=== PATIENT | male | born 2000 | race Caucasian/White ===

== ENCOUNTER 2021-02-18 14:40 | Outpatient (REF) | payer BC, SELFPAY ==
[2021-02-18 15:14] LABS: MANUAL DIFF FLAG NO
[2021-02-18 15:27] LABS: Basophils Absolute Auto 0.1 X10*3/uL (0.0-0.2); Basophils Percent Auto 0.8 % (0-2); Eosinophils Absolute Auto 0.1 X10*3/uL (0.0-0.4); Eosinophils Percent Auto 1.5 % (0-4); Hematocrit 45.2 % (42-52); Hemoglobin 15.2 g/dl (14.0-18.0); Imm Gran Abs Auto 0.02 X10*3/uL (0.00-0.03); Imm Gran Pct Auto 0.3 % (0.0-0.4); Lymphocytes Absolute Auto 1.6 X10*3/uL (1.2-4.9); Lymphocytes Percent Auto 25.2 % (20-40); Mean Corpuscular HGB Conc 33.6 g/dl (31.0-36.0); Mean Corpuscular Hemoglobin 30.7 pg (27.0-33.0); Mean Corpuscular Volume 91.3 fL (80-98); Mean Platelet Volume 10.1 fL (9.4-12.4); Monocytes Absolute Auto 0.5 X10*3/uL (0.1-1.2); Neutrophils Percent Auto 64.2 % (45-73); Platelet Count 245 X10*3/uL (160-400); Red Blood Count 4.95 X10*6/uL (4.60-5.80); Red Cell Distribution Width 11.7 % (11.0-16.0); White Blood Count 6.2 X10*3/uL (4.8-10.8)
[2021-02-18 15:37] LABS: Anion Gap 12 (12-20); Blood Urea Nitrogen 8 mg/dL (9-16); Calcium 10.2 mg/dL (8.4-10.2); Carbon Dioxide 28 mmol/L (22-29); Chloride 106 mmol/L (96-108); Cholesterol 105 mg/dL; Estimated Glomerular Filt Rate > 60; Glucose Random 81 mg/dL (60-115); Potassium 4.6 mmol/L (3.3-5.1); Sodium 141 mmol/L (135-145)
== END 2021-02-18 14:41 | disposition home or self-care (01) ==
LOC: HO.LAB 14:40
PROVIDERS: PCP Internal Medicine; Visit Provider Internal Medicine
DX: F90.9 Attention-deficit hyperactivity disorder, unspecified type (principal); Z83.3 Family history of diabetes mellitus
CPT/HCPCS: 36415; 80048; 82465; 85025

== ENCOUNTER 2022-07-27 13:08 | Outpatient (REF) | payer BC, SELFPAY ==
[2022-07-27 14:31] LABS: Influenza A PCR NEGATIVE (Negative); Influenza B PCR NEGATIVE (Negative); Resp Syncy Virus RNA Qual PCR NEGATIVE (Negative); SARS COV2 PCR INHOUSE NEGATIVE (Negative)
== END 2022-07-27 13:09 | disposition home or self-care (01) ==
LOC: HO.10HDLNP 13:08
PROVIDERS: Visit Provider Internal Medicine
DX: Z20.822 Contact with and (suspected) exposure to COVID-19 (principal); R05.9 Cough, unspecified
CPT/HCPCS: 0241U

== ENCOUNTER 2023-05-11 11:00 | Outpatient (REF) | payer BC, SELFPAY ==
[2023-05-11 13:14] LABS: MANUAL DIFF FLAG NO
[2023-05-11 13:42] LABS: Basophils Percent Auto 0.6 % (0-2); Eosinophils Absolute Auto 0.2 X10*3/uL (0.0-0.4); Hematocrit 46.8 % (42.0-52.0); Hemoglobin 15.8 g/dl (14.0-18.0); Imm Gran Abs Auto 0.01 X10*3/uL (0.00-0.03); Imm Gran Pct Auto 0.1 % (0.0-0.4); Lymphocytes Absolute Auto 2.2 X10*3/uL (1.2-4.9); Lymphocytes Percent Auto 32.4 % (20-40); Mean Corpuscular HGB Conc 33.8 g/dl (31.0-36.0); Mean Corpuscular Hemoglobin 30.3 pg (27.0-33.0); Mean Corpuscular Volume 89.8 fL (80.0-98.0); Mean Platelet Volume 10.6 fL (9.4-12.4); Monocytes Absolute Auto 0.8 X10*3/uL (0.1-1.2); Monocytes Percent Auto 11.8 % (2-11); Neutrophils Absolute Auto 3.5 x10*3/uL (2.0-8.3); Neutrophils Percent Auto 52.1 % (45-73); Platelet Count 258 X10*3/uL (160-400); Red Blood Count 5.21 X10*6/uL (4.60-5.80); White Blood Count 6.7 X10*3/uL (4.8-10.8)
[2023-05-11 13:52] LABS: Anion Gap 10 (12-20); Blood Urea Nitrogen 13 mg/dL (9-16); Calcium 9.5 mg/dL (8.4-10.2); Carbon Dioxide 25 mmol/L (22-29); Chloride 108 mmol/L (96-108); Estimated Glomerular Filt Rate > 60; Glucose Random 99 mg/dL (60-115); Potassium 4.3 mmol/L (3.3-5.1); Sodium 139 mmol/L (135-145)
== END 2023-05-11 11:01 | disposition home or self-care (01) ==
LOC: HO.10HDL 11:00
PROVIDERS: Visit Provider Internal Medicine
DX: F90.9 Attention-deficit hyperactivity disorder, unspecified type (principal); Z20.2 Contact with and (suspected) exposure to infections with a predominantly sexual mode of transmission
CPT/HCPCS: 36415; 80048; 85025

== ENCOUNTER 2023-06-14 10:37 | Emergency (ER) | payer OTHER, BC, SELFPAY ==
--- NOTE | ~2023-06-14 | XR_ITS ---
EXAMINATION: XR KNEE, LEFT CLINICAL INFORMATION: Knee dislocation COMPARISON: Previous x-ray December 2017 TECHNIQUE: Four views of the left knee. FINDINGS: No fracture or joint effusion. Alignment is anatomic. Joint spaces are maintained. No abnormal soft tissue calcification. XR/XR knee LT 3V IMPRESSION: Normal left knee.
[2023-06-14 10:45] VITALS: BP 140/87; PULSE 75; RESP 18; TEMP 36.9; O2SAT 97; BMI 25.1
--- NOTE | 2023-06-14 10:59 | ED_ITS ---
HPI - Extremity Problem General Chief complaint: Extremity Problem Stated complaint: knee dislocation? 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 Reports stepped down & had weight on left leg awkwardly and twisted felt popping/weird sensation. Denies direct injury/trauma, numbness, tingling, weakness, fever/chills MD Complaint: extremity pain Related Data Allergies Allergy/AdvReac Type Severity Reaction Status Date / Time No Known Allergies Allergy Verified 06/14/23 10:44 Review of Systems Review of Systems: Constitutional: No Fever, No Chills ENT/Mouth: No Ear Pain, No Nasal Congestion, No sore throat, No Rhinorrhea, No Swallowing Difficulty Cardiovascular: No Chest Pain, No SOB Respiratory: No Cough, No Sputum, No Wheezing Gastrointestinal: No Nausea, No Vomiting, No Diarrhea, No Constipation, No Abdominal pain Musculoskeletal: + joint pain, No Myalgias, No Joint Swelling Skin: No Skin Lesions, No rash Neuro: No Weakness, No Numbness, No Paresthesias, No head trauma, No LOC Yes all other systems are reviewed and are negative Constitutional: Constitutional: Reports as per HPI [facility] Past Medical History Attestation statement: The following information was validated with the patient. Source: old records reviewed Physical Exam Vital Signs: Vital Signs: Last Vital Signs Temp 98.5 F 06/14/23 10:45 Pulse 75 06/14/23 10:45 Resp 18 06/14/23 10:45 BP 140/87 H 06/14/23 10:45 Pulse Ox 97 06/14/23 10:45 BMI result Body Mass Index 25.1 Const: General: cooperative, healthy appearing and no acute distress Orientation/consciousness: patient oriented x3 Limitations: no limitations HEENT: Head: Yes normal to inspection and Yes atraumatic Ears: hearing grossly normal bilaterally General nose exam: Normal external nose present Face and sinus: Yes normal facial exam Eyes: General: appearance normal, both eyes and all related structures EOM: EOMs intact bilaterally Neck: Neck: Yes normal visual inspection and Yes no meningeal signs Resp: Effort & Inspection: normal respiratory effort and no respiratory distress Cardio: Rate: regular rate Peripheral pulses: Peripheral pulses 2+ throughout Skin: Rashes: no rashes Wounds: no wounds Neuro: General: patient oriented x3, tone normal and no meningeal signs Cranial nerves: Yes CN's II-XII intact bilaterally Gait exam (Neuro): Normal gait present Extrem: Other: L knee with mild swelling. No erythema/warmth. No crepitus or deformity. +Mild ttp, FROM intact with discomfort. Neurovascular intact distally. Course Course Course Narrative: XR knee LT 3V IMPRESSION: Normal left knee. > patient placed in knee immobilizer and supplied with crutches. Suspect dislocation/relocation. Recommended close orthopedic follow-up. Results discussed with patient including worrisome signs and symptoms and strict return precautions, and when to return to the emergency department. They verbalized understanding and feel safe for discharge at this time. 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 On exam vital signs stable, NAD, nontoxic appearing, physical exam as noted above with swollen left knee with mild tenderness in pain with ROM. No deformity. Concern for possible dislocation/relocation versus sprain. Unlikely fracture, septic joint/arthritis Plan: X-ray Please refer to course for remaining clinical decision making, interpretation of labs/imaging results, and discussions with consultants and/or family members. Differential Diagnosis Differential Diagnoses: The differential diagnosis associated with the presentation includes As above Independent Interpretation I performed an independent interpretation of an: Plain X-Ray Radiology Impression Discussion of test interpretation with radiology: I have reviewed the radiologist's reading. External Record Review External record reviewed: Inpatient record, Office record, Outpatient record, Prior outpatient labs, Prior outpatient radiology, Primary care record and Outside ED record Tests considered The following testing was considered but not selected: As above Prescription Management I considered prescription management with: Pain Medication Procedures Orthopedic Splinting/Casting Injury #1: Side: left Lower Extremity Injury Location: knee Lower Extremity Immobilizer: knee immobilizer Other Orthopedic Equipment: crutches Discharge Plan Discharge Clinical Impression: Injury of knee Patient Disposition: Home, Self-Care Instructions: Knee Dislocation (ED), Knee Immobilizer (ED) Additional Instructions: Your x-ray is normal, it is not currently dislocated However we suspect you dislocated and relocated on her own Please wear knee immobilizer and use crutches Ice and elevate Take Tylenol and Motrin If you are ED dislocate return to the ED Please follow-up with home staging specialist If symptoms persist or worsen/pain becomes unbearable return to the ED Referrals: [facility] [place] Orthopedic Surgeons [Provider Group] Stand Alone Forms: Work/School Release
== END 2023-06-14 15:27 | disposition home or self-care (01) ==
PROVIDERS: Emergency Provider Emergency Medicine; PCP Internal Medicine
DX: S89.92XA Unspecified injury of left lower leg, initial encounter (principal); M25.562 Pain in left knee; W11.XXXA Fall on and from ladder, initial encounter; Y93.9 Activity, unspecified; Y99.0 Civilian activity done for income or pay; Y99.9 Unspecified external cause status
CPT/HCPCS: 29505; 73562; 99283; 99284

== ENCOUNTER 2023-06-18 08:05 | Outpatient (REF) | payer OTHER, BC, SELFPAY ==
--- NOTE | ~2023-06-18 | XR_ITS ---
EXAMINATION: XR KNEE, LEFT CLINICAL INFORMATION: Pain. COMPARISON: Prior radiographs, most recently 06/14/2023. TECHNIQUE: An axial view of the left knee is submitted. FINDINGS: Bones and soft tissues are normal. No fracture or joint effusion. Alignment is anatomic. Joint spaces are well maintained. No abnormal soft tissue calcification. XR/XR knee LT 1V IMPRESSION: Normal knee.
== END 2023-06-18 08:06 | disposition home or self-care (01) ==
LOC: HO.HOSX 08:05
PROVIDERS: Visit Provider Physician Assistant
DX: M23.92 Unspecified internal derangement of left knee (principal)
CPT/HCPCS: 73560; 99202

== ENCOUNTER 2023-06-18 09:36 | Outpatient (AMB) | payer OTHER, BC, SELFPAY ==
--- NOTE | 2023-06-18 09:45 | A.OFFVIS_ITS ---
Intake Intake Visit Reasons: ED f/u- Lt Knee dislocation Intake Note: Mk garcia 23 year old male presents today for an ER follow up s/p work injury of left knee, DOI 06/14/23 . Patient reports while stepping down from a ladder he placed weight on left leg awkwardly and twisted causing a pop. He presented to [facility] [place] ED where xrays were taken and placed in a knee immobilizier. Pt states the pain comes in waves but it is most painful when his leg is straight. Pt states he does get numbness and tingling from his knee down to his toes. Allergies No Known Allergies Allergy (Verified 06/18/23 09:45) HPI ED f/u- Lt Knee dislocation HPI Details 23-year-old male who presents to the off [facility] today for an injury he anne stained to his left knee while at work on 06/14/23. He states he was stepping down a ladder at work when he placed weight on his left leg awkwardly and twisted causing a pop. He immediately experienced swelling and difficulty with weight bearing. He was seen at ED where x-rays were performed and he was placed in a knee immobilizer. He states he experiences pain in waves but is aggravated with extending his leg. He also c/o numbness and tingling in his knee which radiates down to his toe. He has a history of knee injury while playing soccer in 2016. 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 [facility] Social History (Updated 06/18/23 @ 09:51 by Trini Moreno MA) Household Members: Family Housing: House Alcohol intake: never Patient Tobacco Use Status: Never used Tobacco Use of substances other than those prescribed or required for medical reasons: No Current occupation: [employer] Review of Systems Const All systems reviewed & are unremarkable except as noted in HPI and below Physical Exam Const General: cooperative and no acute distress Orientation/consciousness: patient oriented x3 Resp Effort & Inspection: normal respiratory effort and able to speak in complete sentences Cardio Peripheral pulses: Peripheral pulses 2+ throughout Neuro General: patient oriented x3 Extrem Other: Left knee: Skin intact, no erythema or joint effusion. Tenderness along the medial joint line as well as medial retropatellar tenderness. Full ROM with crepitus. Negative Agustín?s. Slight ligamentous laxity on the anterior drawer when compared to the contralateral side. NVI. Results Reviewed Results Reviewed: xrays of the left knee obtained in the office today show well preserved joint space, no fracture or dislocations Assessment & Plan Assessment & Plan (1) Internal derangement of left knee: Code(s): M23.92 - Unspecified internal derangement of left knee Plan An MRI of the left knee has been ordered to further evaluate the integrity of ligamentous structures. He will remain out of work untill his follow-up appointment. He should avoid his swim duty as well. He was fit for a playmaker brace in the office today to help with stability. Orders: Orders MR knee LT wo con 06/18/23 M23.92 - Unspecified internal derangement of left knee XR knee LT 1V 06/18/23 M25.562 - Pain in left knee Patient Instructions: Scribed for Renate Isidro PA-C, by Eliezer Short senior medical billing specialist, on 06/18/2023 at 9:45 AM EST. I, Renate Isidro PA-C, have personally reviewed and agree with the information entered by the scribe. Coding Level of Care Code New Pt Level 3 (84943) Diagnoses Internal derangement of left knee M23.92
== END 2023-06-18 10:13 | disposition home or self-care (01) ==
PROVIDERS: PCP Internal Medicine; Visit Provider Physician Assistant
DX: M23.92 Unspecified internal derangement of left knee (principal); X50.1XXA Overexertion from prolonged static or awkward postures, initial encounter; Y99.0 Civilian activity done for income or pay; Z04.2 Encounter for examination and observation following work accident
CPT/HCPCS: 99203

== ENCOUNTER 2023-07-10 15:15 | Outpatient (REF) | payer OTHER, BC, SELFPAY ==
--- NOTE | ~2023-07-10 | MR_ITS ---
EXAMINATION: MR KNEE WITHOUT CONTRAST, LEFT CLINICAL INFORMATION: Internal derangement. COMPARISON: None available. TECHNIQUE: MRI of the knee without contrast was performed using routine sequences on a high-field scanner. FINDINGS: MENISCI: Medial Meniscus: Peripheral tibial surface tear in the body. Lateral Meniscus: Complex tear. There appears be tissue displaced into the intercondylar notch and adjacent to the anterior horn, suspicious for a bucket-handle component to the tear. There is irregular tearing of the residual posterior horn. LIGAMENTS: Cruciate: The ACL is not visualized. There appear to be lax fibers in the intercondylar region. Findings compatible with full-thickness tearing. Intact PCL. Collateral: Intact EXTENSOR MECHANISM: Intact ARTICULAR CARTILAGE/BONE: Patellofemoral Compartment: No significant cartilage loss. Normal patellofemoral alignment. Medial Compartment: Prominent bone contusion in the posterior medial tibial plateau. Overlying cartilage heterogeneity. Bone contusion in the medial margin of the femoral condyle. Lateral Compartment: Prominent bone contusion in the posterior lateral tibial plateau. JOINT FLUID AND BURSAE: Small effusion. No significant Monroy's cyst. MR/MR knee LT wo con IMPRESSION: 1. Tear of the medial meniscal body. 2. Complex tear of the lateral meniscus, with findings suspicious for a bucket-handle component to the tear. Irregular tearing of the residual posterior horn. 3. Anterior cruciate ligament full-thickness tearing. 4. Prominent bone contusion in the posterior aspect of the medial and lateral tibial plateau. Bone contusion in the medial margin of the medial femoral condyle. 5. Small effusion.
== END 2023-07-10 15:16 | disposition home or self-care (01) ==
LOC: HO.MRI 15:15
PROVIDERS: PCP Internal Medicine; Visit Provider Physician Assistant
DX: M23.92 Unspecified internal derangement of left knee (principal)
CPT/HCPCS: 73721

== ENCOUNTER 2023-07-15 08:27 | Outpatient (REF) | payer BC, SELFPAY ==
[2023-07-15 09:34] LABS: Free T4 (Free Thyroxine) 0.97 ng/dL (0.71-1.85); Thyroid Stimulating Hormone 3.57 uIU/mL (0.32-4.0)
== END 2023-07-15 08:28 | disposition home or self-care (01) ==
LOC: HO.LAB 08:27
PROVIDERS: PCP Internal Medicine; Visit Provider Internal Medicine
DX: R63.5 Abnormal weight gain (principal); S83.512A Sprain of anterior cruciate ligament of left knee, initial encounter
CPT/HCPCS: 36415; 84439; 84443; 99212

== ENCOUNTER 2023-07-15 08:43 | Outpatient (AMB) | payer OTHER, BC, SELFPAY ==
--- NOTE | 2023-07-15 08:56 | A.OFFVIS_ITS ---
Intake Vital Signs 07/15/23 08:57 Height 5 ft 9 in Weight 170 lb BMI 25.1 Intake Visit Reasons: OV-Lt Knee dislocation-MRI REVIEW Intake Note: Cedrick is a 23 year old male who presents today for an MRI review of his left knee. s/p work injury of left knee, DOI 06/14/23 . Patient reports while stepping down from a ladder he placed weight on left leg awkwardly and twisted causing a pop . He reports that he is feeling about the same with no changes Allergies No Known Allergies Allergy (Verified 06/18/23 09:45) HPI OV-Lt Knee dislocation-MRI REVIEW HPI Details Mk is a 23 year old man who presents for an MRI review of his left knee injury. This is a workers comp injury, he twisted his knee while descending a ladder on 06/14/23 and felt a painful popping sensation in his knee. He reports pain & swelling with daily activity, worse when trying to extend his leg. He says his symptoms are unchanged from his previous visit with ODILIA Isidro on 06/18/23. He denies any prior treatment and has been wearing a Playmaker knee brace. His work involves manual labor. 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 Review of Systems Const All systems reviewed & are unremarkable except as noted in HPI and below Physical Exam Vital Signs: BMI result Body Mass Index 25.1 Const General: no acute distress, alert and awake Orientation/consciousness: patient oriented x3 HEENT Head: Yes normocephalic and Yes atraumatic Eyes EOM: EOMs intact bilaterally Resp Effort & Inspection: normal respiratory effort and able to speak in complete sentences Cardio Jugular venous distension: no JVD Skin General skin exam: turgor normal Rashes: no rashes Neuro General: patient oriented x3 Extrem Other: Full ROM 2+ Ant dwarwer No pivot shift ( + apprehension) Psych Appearance: grossly normal Affect: normal affect Attitude: cooperative Results Reviewed Results Reviewed: I personally reviewed relevant MR images 1. Tear of the medial meniscal body. 2. Complex tear of the lateral meniscus, with findings suspicious for a bucket-handle component to the tear. Irregular tearing of the residual posterior horn. 3. Anterior cruciate ligament full-thickness tearing. 4. Prominent bone contusion in the posterior aspect of the medial and lateral tibial plateau. Bone contusion in the medial margin of the medial femoral condyle. 5. Small effusion. Assessment & Plan Assessment & Plan (1) ACL tear: Code(s): S83.519A - Sprain of anterior cruciate ligament of unspecified knee, initial encounter Plan: Left ACL tear with concomitant lateral meniscus injury. I had a long discussion with him regarding treatment options. He is 23 healthy and active and I recommend ACL reconstruction with allograft. I explained the procedure and the details including the surgical and nonsurgical options.I discussed the risks benefits and alternatives including but not limited to the risk of pain, infection, stiffness, need for further surgery as well as potential medical complications. He will be out of work for at least 6 weeks but more likely 12 and return to unrestricted work could take up to 6 months. Plan Scribed for Kris Farah MD by Billy Watkins, pesticide use medical coordinator, on 07/15/23 at 9:15 AM, EST. Coding Level of Care Code Est Pt Level 4 (45094) Diagnoses ACL tear S83.519A
[2023-07-15 08:57] VITALS: BMI 25.1
== END 2023-07-15 09:59 | disposition home or self-care (01) ==
PROVIDERS: PCP Internal Medicine; Visit Provider Orthopaedic Surgery
DX: S83.519A Sprain of anterior cruciate ligament of unspecified knee, initial encounter (principal); Y99.0 Civilian activity done for income or pay; Z04.2 Encounter for examination and observation following work accident
CPT/HCPCS: 99214

== ENCOUNTER 2023-08-19 09:25 | Outpatient (AMB) | payer OTHER, BC, SELFPAY ==
[2023-08-19 09:27] VITALS: BMI 28.1
--- NOTE | 2023-08-19 09:27 | A.OFFVIS_ITS ---
Intake Vital Signs 08/19/23 09:27 Height 5 ft 9 in Weight 190 lb BMI 28.1 Intake Visit Reasons: Pre-Lt ACL 08/25 NE Allergies No Known Allergies Allergy (Verified 08/19/23 09:28) HPI Pre-Lt ACL 08/25 NE HPI Details 23-year-old male who presents in the off ice today for his preoperative history and physical exam prior to a left ACL repair to be performed on 08/25/[address] Kris Farah. Patient is accompanied in the office today by his grandmother. Patient has no known allergy history. Patient is not currently taking any medication. Patient has s significant medical history: -When he was 5 years old, not stated wha t surgery, did not have any issues with anesthesia. Patient has no known surgical history. Patient has a social history, as follows: - Currently works at [employer] [facility] Social History (Updated 06/18/23 @ 09:51 by Trini Moreno MA) Household Members: Family Housing: House Alcohol intake: never Patient Tobacco Use Status: Never used Tobacco Current occupation: [employer] Review of Systems Const All systems reviewed & are unremarkable except as noted in HPI and below Physical Exam Vital Signs: BMI result Body Mass Index 28.1 Const General: no acute distress, alert and awake Orientation/consciousness: patient oriented x3 HEENT Head: Yes normocephalic and Yes atraumatic Eyes EOM: EOMs intact bilaterally Resp Effort & Inspection: normal respiratory effort and able to speak in complete sentences Cardio Jugular venous distension: no JVD Skin General skin exam: turgor normal Rashes: no rashes Neuro General: patient oriented x3 Extrem Other: Left knee: Skin is clean, dry, and intact Full ROM 2+ Ant dwarwer No pivot shift ( + apprehension) Psych Appearance: grossly normal Affect: normal affect Attitude: cooperative Assessment & Plan Assessment & Plan (1) ACL tear: Code(s): S83.519A - Sprain of anterior cruciate ligament of unspecified knee, initial encounter Qualifiers: Encounter type: subsequent encounter Laterality: left Qualified Code(s): S83.512D - Sprain of anterior cruciate ligament of left knee, subsequent encounter Plan Mr. De La Rosa is a 23-year-old male who presents in the office today for his preoperative history and physical exam prior to a left ACL repair to be perfor med on 08/25/[address] Kris Farah. Patient is accompanied in the office today by his grandmother. Patient is accompanied in the office today by his grandmother. Patient has no known allergy history. Patient is not currently taking any medication. Patient has s significant medical history: -When he was 5 years old, not stated what surgery, did not have any issues with anesthesia. Patient has no known surgical history. Patient has a social history, as follows: - Currently works at [employer] I discussed in detail the procedure and what to expect pre and post operatively. We discussed the risks, benefits and alternatives to the surgery as well as the rehabilitation course. The risks; which include, but are not limited to infection, bleeding, nerve injury, ongoing pain, swelling, and stiffness, perioperative risk of injury to bones and soft tissues, and blood clots. I have answered all questions and with their understanding they have consented to move forward with a left ACL repair to be performed on 08/25/[address] Kris Farah. Follow up will be at the post operative appointment on 08/31/2023 or sooner if needed. Post operative medications was sent to the pharmacy, Oxycodone-acetaminophen 5- 325 (Percocet) PO Q4-6H PRN, quantity 42 tabs for 7 days and Morphine ER (MS Contin) 15 mg PO Q12H PRN, quantity 6 tabs for 3 days while in the office today. The patient was instructed that he should obtain the prescription prior to surgery but should not consume until after the procedure; as these should only be taken for post operative pain management. Should the patient take these medications prior to surgery a refill will not be sent to the pharmacy until their scheduled refill date. Patient was fitted for the brace while in the office today. Medications: New oxycodone-acetaminophen 5-325 mg Partial Fill upon patient request. 1 tab PO Q4-6H PRN 42 tabs 0RF pain 7 days morphine ER (MS Contin) Partial Fill upon patient request. 15 mg PO Q12H 6 tabs 0RF pain severe 3 days Patient Instructions: Scribed for Radha Tam PA-C by Mylene Henriquez medical science liaison, on 08/19/2023 at 9:31 am, EST. Coding Level of Care Code Global (84914) Diagnoses Rupture of anterior cruciate ligament of left knee, subsequent encounter S83.512D Encounter type: subsequent encounter Laterality: left
== END 2023-08-19 09:52 | disposition home or self-care (01) ==
PROVIDERS: PCP Internal Medicine; Visit Provider Physician Assistant
DX: S83.512A Sprain of anterior cruciate ligament of left knee, initial encounter (principal)
CPT/HCPCS: 99024

== ENCOUNTER → 2023-08-19 09:25 | Outpatient (BNVA) | payer OTHER, BC, SELFPAY | PROVIDERS: PCP Internal Medicine; Visit Provider Physician Assistant | DX: S83.512D Sprain of anterior cruciate ligament of left knee, subsequent encounter (principal) | CPT/HCPCS: 99212 ==

== ENCOUNTER 2023-09-01 08:33 | Day surgery (SDC) | payer OTHER, SELFPAY ==
[2023-08-23 11:24] VITALS: BMI 28.1
--- NOTE | 2023-08-23 11:46 | P.CONAN_ITS ---
Documented by User: Sera Garcia NP 09/10/23 13:35 HPI - Anesthesia Eval Consult details Narrative: 23yo M for Left ACL Allograft PMFSH Active Problems Active Problems: All Active Problems (Updated 08/23/23 @ 11:21 by Xenia Banuelos RN) Acute meniscal tear of knee (Acute) ACL tear (Acute) Internal derangement of left knee (Acute) Past Medical History Medical History (Updated 09/07/23 @ 08:29 by Mylene Henriquez) Acute meniscal tear of knee Surgical History Surgical History Surgical history unknown Social History Social History Household Members: Family Housing: House Alcohol intake: never Patient Tobacco Use Status: Never used Tobacco Current occupation: [employer] Allergies Allergy/AdvReac Type Severity Reaction Status Date / Time No Known Allergies Allergy Verified 09/07/23 08:13 Exam Height,Weight and Vital Signs: Height 5 ft 9 in Weight 86.183 kg Pertinent Lab Results Pertinent Lab Results: Laboratory Tests 05/11/23 05/11/23 05/11/23 11:10 11:10 11:55 WBC 6.7 Hgb 15.8 Hct 46.8 Plt Count 258 Sodium 139 Potassium 4.3 Chloride 108 Carbon Dioxide 25 BUN 13 Creatinine 0.82 Assessment and Plan Assessment Anesthesia Assessment: Chart Reviewed Documented by User: Asha Lindsay MD 09/13/23 08:26 PMFSH Past Medical History Medical History (Updated 09/07/23 @ 08:29 by Mylene Henriquez) Acute meniscal tear of knee Family History Family history of problems with anesthesia: No Surgical History Surgical History Surgical history unknown History of Problems with Anesthesia: No Social History Social History Household Members: Family Housing: House Alcohol intake: never Patient Tobacco Use Status: Never used Tobacco Current occupation: central maintanence Meds Allergies Allergy/AdvReac Type Severity Reaction Status Date / Time No Known Allergies Allergy Verified 09/07/23 08:13 Assessment and Plan Assessment Anesthesia Assessment: Anesthesia Plan Discussed Final Anesthetic Review Family History of Problems with Anesthesia: No History of Problems with Anesthesia: No NPO: Yes ASA Class: II Final Preanesthetic Review: No Changes in Pt Med Stat, Meds/Allgs Chart Reviewed, Consent Obtained/Reviewed and Anes Risks/Benef Reviewed Patient Risk: Low Procedure Risk: Low Anesthetic Plan Anesthetic Plan: GA Disposition: Standard PACU
[2023-09-01] VITALS (10 sets, daily range): BP systolic 85–143; BP diastolic 43–83; PULSE 64–90; RESP 16; TEMP 35.9–36.4; O2SAT 97–99; BMI 29.4
[2023-09-01] MEDS: Lactated Ringers 1,000 ML 100 ML IVCONT (09:08)
--- NOTE | 2023-09-01 11:20 | MHC.SHP ---
Pre-Procedural Eval Section A Date of Service: 09/01/23 The patient is an INPATIENT: No Changes since office visit: No Cold of Flu in the past 2 weeks, No New Medical Problems, No Changes in Medication and No Patient answered all questions The History & Physical has been completed within 30 days and I have reviewed it.: Yes Section B Chief Complaint: Sprain of anterior cruciate ligament of unspecifie Allergies: Allergies Allergy/AdvReac Type Severity Reaction Status Date / Time No Known Allergies Allergy Verified 09/01/23 08:45 Plan I have reviewed the history and physical and performed a pertinent physical examination on my patient. No changes have occurred unless specified. Time Spent With Patient Time: Total time managing care of this patient today ____ minutes.
--- NOTE | 2023-09-01 13:22 | PM.OP ---
Brief Operative Note Date of Service: 09/01/23 Pre-op diagnosis: left ACL Tear and lateral meniscus tear Post-op diagnosis: same Procedure: Left ACL recon with allograft and lateral meniscus repair Implants: [employer]ora [employer]hew fast fix meniscal cinches x 6 Surgeon: Kris Farah MD Anesthesia: GETA and regional Was an Clinical Laboratory Science Professor used for this Procedure?: Yes Clinical Laboratory Science Professor: Radha Tam Estimated blood loss (mL): 15 Tourniquet time (min): 70 IV fluids (mL): 1,000 Pathology: none sent Condition: stable Disposition: PACU
--- NOTE | 2023-09-02 12:04 | P.OP_ITS ---
Operative Note Operative Note Date of Service: 09/01/23 Narrative: Date of Service: 09/01/23 Pre-op diagnosis: left ACL Tear and lateral meniscus tear Post-op diagnosis: same Procedure: Left ACL recon with allograft and lateral meniscus repair Implants: Lora [employer] Nephew fast fix meniscal cinches x 6 Surgeon: Krsi Farah MD Anesthesia: GETA and regional Was an Associate Agent Insurance Sales used for this Procedure?: Yes Associate Agent Insurance Sales: Radha Tam Estimated blood loss (mL): 15 Tourniquet time (min): 70 IV fluids (mL): 1,000 Pathology: none sent Condition: stable Disposition: PACU Procedure in detail: Patient was brought to the operating room placed supine on the arthroscopic table and prepped and draped in standard sterile fashion. A time-out was called to identify proper site proper procedure proper surgeon and IV antibiotics per weight were administered. Under anesthesia he had a + pivot shift. I began by exsanguinating the limb and insufflating tourniquet to 300 mm Hg. Then made a standard anterolateral stab incision. The knee was insufflated with water and 30 degree arthroscope was placed. There was grade 1 fibrillations of the patella but overall suprapatellar pouch and the gutters were clean. I descended into the medial compartment where I made my far medial portal under direct visualization. There was an unstable bucket handle lateral meniscus tear. There were multiple flaps and the root was intact The cartialge srufaces were prisinte. I used six Fast Pass meniscal cinches (Lora and Nephew) to repair the tear through the AM portal. I was satisfied with the extent of repair. I then examined the notch where there was a + empty wall sign and an intact PCL. I de brided the stump and acl footprint and performed a limited notchplasty. I then, through a far AM portal and a 7mm behind the back guide, drilled a k-wire through the LFC with the knee in hyper-flexion. I measured the tunnel as a 36 and then after sizing the allograft on the back table drilled a 28 mm tunnel with a 10 mm reamer. The final 8 mm was drilled with a 4.5 reamer. I then pulled a suture through the femoral tunnel and turned my attention to the tibia. I did examine the femoral tunnel and was satisfied with the posterior wall and its location low and medial at the anatomic footprint. I placed my tibial drill guide in 55 deg and, through a anteromedial inc just lateral to the tibial tubercle placed a k-wire into the notch exiting just medial to the anterior horn insertion of the lateral meniscus. I then over-reamed with a 10mm reamer. I cleaned the tunnels up with a shaver. On the back table I whip-stitched the allograft to fit through a 10 aperture and attached the femoral button to the looped end. I placed the graft on 15lbs of tension for 10 minutes. I then passed the allograft through the tibial tunnel and femoral tunnel and flipped the button. I cycled the knee about 10-15 cycles and then placed a tibial interference screw with the knee in hyper-extension while holding the graft taught. Once I was satisfied that the interference screw was buried I examined the ACL and the lateral meniscus repair. The repair was stable and the ACL was not impinging and there was a negative pivot shift. I then removed all instrumentation and closed the incisions with nylon. Patient was then placed in sterile dressings and a hinged knee brace. She was then extubated brought recovery room stable condition. There were no known complications.
== END 2023-09-01 15:22 | disposition home or self-care (01) ==
LOC: HO.SSS 08:35
PROVIDERS: PCP Internal Medicine; Visit Provider Orthopaedic Surgery
PROC: (CPT 27428; principal; 2023-09-01 10:50)
DX: S83.512A Sprain of anterior cruciate ligament of left knee, initial encounter (principal); S83.252A Bucket-handle tear of lateral meniscus, current injury, left knee, initial encounter; X58.XXXA Exposure to other specified factors, initial encounter; Y93.9 Activity, unspecified; Y92.9 Unspecified place or not applicable; Y99.8 Other external cause status
CPT/HCPCS: 29882; 29888; C1713; C1769; J0131; J0171; J0665; J0690; J1100; J2250; J2405; J2704

== ENCOUNTER → 2023-09-01 08:33 | Outpatient (BNV) | payer OTHER, SELFPAY | PROVIDERS: PCP Internal Medicine; Visit Provider Orthopaedic Surgery | DX: S83.512A Sprain of anterior cruciate ligament of left knee, initial encounter (principal); S83.252A Bucket-handle tear of lateral meniscus, current injury, left knee, initial encounter | CPT/HCPCS: 29882; 29888 ==

== ENCOUNTER 2023-09-07 08:05 | Outpatient (AMB) | payer OTHER, SELFPAY ==
--- NOTE | 2023-09-07 08:12 | MHC.OFFVIS ---
Intake Vital Signs 09/07/23 08:17 Height 5 ft 9 in Weight 195 lb BMI 28.8 Intake Visit Reasons: PO LT ACL w/ allo 09/01/23 NE Intake Note: Mk is a 23 year old male who presents today for a post op appointment s/p left ACL w/ allo 09/01/22 NE. Patient reports he notice that his swelling has gone down, however he is still having pain. Allergies No Known Allergies Allergy (Verified 09/07/23 08:13) HPI PO LT ACL w/ allo 09/01/23 NE HPI Details 23-year-old male who presents in the office today 6 days status post left ACL reconstruction with allograft and lateral meniscus repair, which was performed on 09/01/[address] Farah. The patient reports he has noticed his edema has resolved, but states he is still having pain. 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 Sutures were intact. No surrounding erythema or drainage. No signs of infection. Able to dorsiflex and plantarflex. NVI. Assessment & Plan Assessment & Plan (1) ACL tear: Comment: Left ACL reconstruction with allograft and lateral meniscus repair 09/01/2023 Dr. Kris Farah Code(s): S83.519A - Sprain of anterior cruciate ligament of unspecified knee, initial encounter Qualifiers: Encounter type: subsequent encounter Laterality: left Qualified Code(s): S83.512D - Sprain of anterior cruciate ligament of left knee, subsequent encounter Plan Mr. De La Rosa is a 23-year-old male who presents in the office today 6 days status post left ACL reconstruction with allograft and lateral meniscus repair, which was performed on 09/01/[address] Farah. The patient reports he has noticed his edema has resolved, but states he is still having pain. Sutures were removed and steri-stripes were applied. The patient is scheduled to begin physical therapy on 09/09/2023. We discussed that he will be out of work for an estimated 6 months which could be shorted or extended depending on the progression of the patient. Follow up will be in [address] Farah, or sooner if needed. X-rays of the left knee which were obtained while in the office today and were reviewed by me, Radha Tam PA-C, revealed: Endo button demonstrates appropriate positioning. Orders: Orders XR knee LT 1V Today M25.569 - Pain in unspecified knee Patient Instructions: Scribed for Radha Tam PA-C by Mylene Henriquez medical office assistant instructor, on 09/07/2023 at 8:12 am, EST. Coding Level of Care Code Global (42455) Diagnoses Rupture of anterior cruciate ligament of left knee, subsequent encounter S83.512D Encounter type: subsequent encounter Laterality: left
[2023-09-07 08:17] VITALS: BMI 28.8
== END 2023-09-07 08:53 | disposition home or self-care (01) ==
PROVIDERS: PCP Internal Medicine; Visit Provider Physician Assistant
DX: S83.512D Sprain of anterior cruciate ligament of left knee, subsequent encounter (principal)
CPT/HCPCS: 99024

== ENCOUNTER 2023-09-07 12:01 | Outpatient (REF) | payer OTHER, SELFPAY ==
--- NOTE | ~2023-09-07 | XR_ITS ---
EXAMINATION: XR KNEE, LEFT CLINICAL INFORMATION: Pain. COMPARISON: Prior radiographs, most recently 06/23/2023. TECHNIQUE: An AP view of the left knee is submitted. FINDINGS: Bony alignment and mineralization are normal. The lateral and medial joint space compartments are symmetric and well-maintained. There has been a prior ACL repair. There is a sclerotic, benign bone island seen in the medial aspect of the proximal tibial metaphysis. No focal soft tissue swelling, gas or foreign body is seen. XR/XR knee LT 1V IMPRESSION: There are postoperative changes consistent with a prior ACL repair. The examination is otherwise unremarkable.
== END 2023-09-07 12:02 | disposition home or self-care (01) ==
LOC: HO.HOSX 12:01
PROVIDERS: Visit Provider Physician Assistant
DX: S83.512D Sprain of anterior cruciate ligament of left knee, subsequent encounter (principal)
CPT/HCPCS: 73560; 99212

== ENCOUNTER 2023-10-07 08:51 | Outpatient (AMB) | payer OTHER, SELFPAY ==
[2023-10-07 08:55] VITALS: BMI 28.8
--- NOTE | 2023-10-07 08:55 | A.OFFVIS_ITS ---
Intake Vital Signs 10/07/23 08:55 Height 5 ft 9 in Weight 195 lb BMI 28.8 Intake Visit Reasons: PO LT ACL w/ allo 09/01/23 NE Intake Note: Mk is a 23 year old male who presents today for a post op appointment s/p left ACL w/ allo 09/01/22 NE. He remains out of work at this time. Patient reports that he is doing well, he has started to unlock brace at therapy which is going well. He has no concerns. Allergies No Known Allergies Allergy (Verified 10/07/23 08:57) HPI PO LT ACL w/ allo 09/01/23 NE HPI Details Mk is a 23 year old man who presents ~5 weeks S/P left ACL recon with allograft and lateral meniscus repair. He says he is doing well. he has been attending PT and continues to wear his knee brace, which they have started to unlock during therapy. He has been out of work since his surgery. 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 Review of Systems Const All systems reviewed & are unremarkable except as noted in HPI and below Physical Exam Vital Signs: BMI result Body Mass Index 28.8 Const General: no acute distress, alert and awake Orientation/consciousness: patient oriented x3 HEENT Head: Yes normocephalic and Yes atraumatic Eyes EOM: EOMs intact bilaterally Resp Effort & Inspection: normal respiratory effort and able to speak in complete sentences Cardio Jugular venous distension: no JVD Skin General skin exam: turgor normal Rashes: no rashes Neuro General: patient oriented x3 Extrem Other: inc c/d/i Stable Sarthak's/Ant drawer No effusion No pain with ROM Psych Appearance: grossly normal Affect: normal affect Attitude: cooperative Assessment & Plan Assessment & Plan (1) Acute meniscal tear of knee: Code(s): S83.209A - Unspecified tear of unspecified meniscus, current injury, unspecified knee, initial encounter Plan: Continue PT as per protocol. f/u 6 weeks (2) ACL tear: Comment: Left ACL reconstruction with allograft and lateral meniscus repair 09/01/2023 Dr. Kris Farah Code(s): S83.519A - Sprain of anterior cruciate ligament of unspecified knee, initial encounter Qualifiers: Encounter type: subsequent encounter Laterality: left Qualified Code(s): S83.512D - Sprain of anterior cruciate ligament of left knee, subsequent encounter Plan Prepared for Kris Farah MD by Billy Watkins, medical communication specialist, on 10/07/23 at 9:00 AM, EST. Orders: Orders PT Evaluation and Treatment Today S83.209A - Unspecified tear of unspecified meniscus, current injury, unspecified knee, initial encounter, S83.519A - Sprain of anterior cruciate ligament of unspecified knee, initial encounter Coding Level of Care Code Global (77598) Diagnoses Acute meniscal tear of knee S83.209A Rupture of anterior cruciate ligament of left knee, subsequent encounter S83.512D Encounter type: subsequent encounter Laterality: left
== END 2023-10-07 09:46 | disposition home or self-care (01) ==
PROVIDERS: PCP Internal Medicine; Visit Provider Orthopaedic Surgery
DX: S83.209A Unspecified tear of unspecified meniscus, current injury, unspecified knee, initial encounter (principal); S83.512D Sprain of anterior cruciate ligament of left knee, subsequent encounter
CPT/HCPCS: 99024

== ENCOUNTER → 2023-10-07 08:51 | Outpatient (BNVA) | payer OTHER, SELFPAY | PROVIDERS: PCP Internal Medicine; Visit Provider Orthopaedic Surgery | DX: S83.207D Unspecified tear of unspecified meniscus, current injury, left knee, subsequent encounter (principal); S83.512D Sprain of anterior cruciate ligament of left knee, subsequent encounter | CPT/HCPCS: 99212 ==

== ENCOUNTER 2023-11-18 09:21 | Outpatient (AMB) | payer OTHER, SELFPAY ==
--- NOTE | 2023-11-18 09:32 | MHC.OFFVIS ---
Intake Intake Visit Reasons: PO-LT ACL w/ allo 09/01/23 NE Intake Note: Mk is a 23 year old male who presents today for a post op appointment s/p left ACL w/ allo 09/01/22 NE. Patient reports that heis dong well, he feels that he is progressing well. He has mild pain that can occasionally spike. He remains out of work at this time. Allergies No Known Allergies Allergy (Verified 10/07/23 08:57) HPI PO-LT ACL w/ allo 09/01/23 NE HPI Details This is a 23-year-old who is 3 months status post left ACL reconstruction with a bucket-handle meniscus tear that was repaired. He has been doing physical therapy. He has no complaints. 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 He is 0-125 degrees of motion. He has a 1+ stable Sarthak's with firm endpoint. He has no joint line tenderness. Assessment & Plan Assessment & Plan (1) ACL tear: Comment: Left ACL reconstruction with allograft and lateral meniscus repair 09/01/2023 Dr. Kris Farah Code(s): S83.519A - Sprain of anterior cruciate ligament of unspecified knee, initial encounter Qualifiers: Encounter type: subsequent encounter Laterality: left Qualified Code(s): S83.512D - Sprain of anterior cruciate ligament of left knee, subsequent encounter Plan: Patient is doing well. He is initiating the strengthening phase of ACL protocol. Caution should still be taken with hyperflexion. He may discontinue use of the knee brace. I would like to see him back in 3 months. (2) Acute meniscal tear of knee: Code(s): S83.209A - Unspecified tear of unspecified meniscus, current injury, unspecified knee, initial encounter Plan: Coding Level of Care Code Global (60111) Diagnoses Rupture of anterior cruciate ligament of left knee, subsequent encounter S83.512D Encounter type: subsequent encounter Laterality: left Acute meniscal tear of knee S83.209A
== END 2023-11-18 09:48 | disposition home or self-care (01) ==
PROVIDERS: PCP Internal Medicine; Visit Provider Orthopaedic Surgery
DX: S83.512D Sprain of anterior cruciate ligament of left knee, subsequent encounter (principal); S83.209A Unspecified tear of unspecified meniscus, current injury, unspecified knee, initial encounter
CPT/HCPCS: 99024

== ENCOUNTER → 2023-11-18 09:21 | Outpatient (BNVA) | payer OTHER, SELFPAY | PROVIDERS: PCP Internal Medicine; Visit Provider Orthopaedic Surgery | DX: S83.512D Sprain of anterior cruciate ligament of left knee, subsequent encounter (principal); S83.209A Unspecified tear of unspecified meniscus, current injury, unspecified knee, initial encounter | CPT/HCPCS: 99212 ==

== ENCOUNTER 2024-01-10 10:15 | Outpatient (AMB) | payer OTHER, SELFPAY ==
--- NOTE | 2024-01-10 10:18 | A.OFFVIS_ITS ---
Intake Visit Reasons: ov-LT ACL w/ allo 09/01/23 NE Intake Note: Mk is a 23 year old male who presents today for a post op appointment s/p left ACL w/ allo 09/01/22 NE. Physical therapy did call on 12/31/23 in regards to this patient stating that he was walking on a even ground when he experienced a valgus collapse of left knee with a mild increase of pain. No swelling, normal ROM however discomfort with prolonged standing and 2 steps/climbing stairs. He reports that the increase of pain has resolved, he has no concerns at this time. He started working on lateral movements and balance but this is going well, Allergies No Known Allergies Allergy (Verified 10/07/23 08:57) HPI HPI ov-LT ACL w/ allo 09/01/23 NE: Details: Mk is a 23 year old male who presents today for a post op appointment s/p left ACL w/ allo 09/01/22 NE. Physical therapy did call on 12/31/23 in regards to this patient stating that he was walking on a even ground when he experienced a valgus collapse of left knee with a mild increase of pain. No swelling, normal ROM however discomfort with prolonged standing and 2 steps/climbing stairs. He reports that the increase of pain has resolved, he has no concerns at this time. 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 Kris Farah Code(s): S83.519A - Sprain of anterior cruciate ligament of unspecified knee, initial encounter Category: Medical Qualifiers: Encounter type: subsequent encounter Laterality: left Qualified Code(s): S83.512D - Sprain of anterior cruciate ligament of left knee, subsequent encounter Plan: Doing well Continue strengthening with PT Continue anticipated RTW 02/23. F/u 6 weeks Coding Level of Care Code Est Pt Level 3 (45604) Diagnoses Acute meniscal tear of knee S83.209A Rupture of anterior cruciate ligament of left knee, subsequent encounter S83.512D Encounter type: subsequent encounter Laterality: left
== END 2024-01-10 11:52 | disposition home or self-care (01) ==
PROVIDERS: PCP Internal Medicine; Visit Provider Orthopaedic Surgery
DX: S83.512D Sprain of anterior cruciate ligament of left knee, subsequent encounter (principal); S83.209A Unspecified tear of unspecified meniscus, current injury, unspecified knee, initial encounter
CPT/HCPCS: 99213

== ENCOUNTER → 2024-01-10 10:15 | Outpatient (BNVA) | payer OTHER, SELFPAY | PROVIDERS: PCP Internal Medicine; Visit Provider Orthopaedic Surgery | DX: S83.207A Unspecified tear of unspecified meniscus, current injury, left knee, initial encounter (principal); S83.512D Sprain of anterior cruciate ligament of left knee, subsequent encounter | CPT/HCPCS: 99212 ==

== ENCOUNTER 2024-02-28 09:24 | Outpatient (AMB) | payer OTHER, SELFPAY ==
--- NOTE | 2024-02-28 09:31 | MHC.OFFVIS ---
Vital Signs 02/28/24 09:35 Height 5 ft 9 in Weight 190 lb BMI 28.1 Intake Visit Reasons: ov-LT ACL w/ allo 09/01/23 NE-follow up Intake Note: Mk is a 23 year old male who presents today for a follow up appointment s/p left ACL w/ allo 09/01/22 NE. Patient expresses his left knee is doing okay. He has continued strengthening activities w/ PT. He would like to discuss what the remainder of his recovery is looking like and if he can return back to work. Allergies No Known Allergies Allergy (Verified 02/28/24 09:34) HPI HPI ov-LT ACL w/ allo 09/01/23 NE-follow up: Details: Mk is a 23 year old male who presents today for a follow up appointment s/p left ACL w/ allo 09/01/22 NE. Patient expresses his left knee is doing okay. He has continued strengthening activities w/ PT. He would like to discuss what the remainder of his recovery is looking like and if he can return back to work. 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 Kris Farah Code(s): S83.519A - Sprain of anterior cruciate ligament of unspecified knee, initial encounter Category: Medical Qualifiers: Encounter type: subsequent encounter Laterality: left Qualified Code(s): S83.512D - Sprain of anterior cruciate ligament of left knee, subsequent encounter Plan: Progressing but still with subjective weakness. I recommend progression to dynamic phase of PT. He described his work which requires squatting/twisting/lfiting. No work. F/u 6 weeks Coding Level of Care Code Est Pt Level 3 (34277) Diagnoses Rupture of anterior cruciate ligament of left knee, subsequent encounter S83.512D Encounter type: subsequent encounter Laterality: left
[2024-02-28 09:35] VITALS: BMI 28.1
== END 2024-02-28 09:48 | disposition home or self-care (01) ==
PROVIDERS: PCP Internal Medicine; Visit Provider Orthopaedic Surgery
DX: S83.512D Sprain of anterior cruciate ligament of left knee, subsequent encounter (principal)
CPT/HCPCS: 99213

== ENCOUNTER → 2024-02-28 09:24 | Outpatient (BNVA) | payer OTHER, SELFPAY | PROVIDERS: PCP Internal Medicine; Visit Provider Orthopaedic Surgery | DX: S83.512D Sprain of anterior cruciate ligament of left knee, subsequent encounter (principal) | CPT/HCPCS: 99212 ==

== ENCOUNTER 2024-04-07 10:09 | Outpatient (AMB) | payer OTHER, SELFPAY ==
[2024-04-07 10:09] VITALS: BMI 28.1
--- NOTE | 2024-04-07 10:09 | A.OFFVIS_ITS ---
Vital Signs 04/07/24 10:09 Height 5 ft 9 in Weight 190 lb BMI 28.1 Intake Visit Reasons: ov-LT ACL w/ allo 09/01/23 NE-follow up Intake Note: Mk is a 23 year old male who presents today for a follow up appointment s/p left ACL w/ allo 09/01/23 NE. Patient states he has been going to PT and its very successful with relief from symptoms. Patient states he'd like to discuss returning to work. Allergies No Known Allergies Allergy (Verified 04/07/24 10:11) HPI HPI ov-LT ACL w/ allo 09/01/23 NE-follow up: Details: Mk is a 23 year old male who presents today for a follow up appointment s/p left ACL w/ allo 09/01/23 NE with lateral meniscus repair Patient states he has been going to PT and its very successful with relief from symptoms. Patient states he'd like to discuss returning to work. He does state that he feels some weakness when standing from a deep squatted position. He denies giving way. He is still unable to return to work because work involves climbing ladders with heavy objects and deep squatting with lift. He feels these tasks are still difficult for him. 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 No effusion. Full range of motion. Negative Agustín's. There is a 1+ Sarthak's with a stable endpoint and negative pivot shift. Assessment & Plan Assessment & Plan (1) ACL tear: Comment: Left ACL reconstruction with allograft and lateral meniscus repair 09/01/2023 Dr. Kris Farah Code(s): S83.519A - Sprain of anterior cruciate ligament of unspecified knee, initial encounter Category: Medical Qualifiers: Encounter type: subsequent encounter Laterality: left Qualified Code(s): S83.512D - Sprain of anterior cruciate ligament of left knee, subsequent encounter Plan: This is a 24-year-old gentleman status post ACL reconstruction with allograft and lateral meniscus repair. He is doing well. He does have some mild laxity in the a to P direction with no rotational instability. I think he is progressing forward with physical therapy in an appropriate manner. He can return to work with restrictions. His restrictions include no climbing especially ladders no squatting greater than 90 degrees and no heavy lifting. Heavy lifting would be defined by anything over 40 lb. He should return to see me in 3 months' time. (2) Status post lateral meniscus repair: Code(s): Z98.890 - Other specified postprocedural states Category: Surgical Plan: Coding Level of Care Code Est Pt Level 3 (16462) Diagnoses Rupture of anterior cruciate ligament of left knee, subsequent encounter S83.512D Encounter type: subsequent encounter Laterality: left Status post lateral meniscus repair Z98.890
== END 2024-04-07 10:45 | disposition home or self-care (01) ==
PROVIDERS: PCP Internal Medicine; Visit Provider Orthopaedic Surgery
DX: S83.512D Sprain of anterior cruciate ligament of left knee, subsequent encounter (principal); Z98.890 Other specified postprocedural states
CPT/HCPCS: 99213

== ENCOUNTER → 2024-04-07 10:09 | Outpatient (BNVA) | payer OTHER, SELFPAY | PROVIDERS: PCP Internal Medicine; Visit Provider Orthopaedic Surgery | DX: S83.512D Sprain of anterior cruciate ligament of left knee, subsequent encounter (principal) | CPT/HCPCS: 99212 ==

== ENCOUNTER 2024-04-07 13:00 | Outpatient (RCR) | payer OTHER, BC, SELFPAY ==
--- NOTE | 2023-09-09 14:08 | MHC.PT.EP ---
[facility] [place] Office [place] Office [place] Office [address] Traci Melendez [address] [phone] F: [phone] F: [phone] F: [phone] F: [phone] Physical Therapy Plan of Care Date of Evaluation: 09/09/23 Date of Surgery: 09/01/23 Diagnosis: S/P Left ACL reconstruction with allograft and lateral meniscus repair 09/01/2023 Dr. Kris Panda Assessment: 23 YO MALE PRESENTS TODAY S/P 09/01/23 Lt ACL W ALLOGRAFT AND LATERAL MENISCAL TEAR REPAIR- HE IS CURRENTLY WEARING HIS Lt LE BRACE AND AMB W CRUTCHES. THE Pt RESIDES W HIS PARENTS IN A 2 LEVEL HOME, BEDROOMS UPSTAIRS. HE HAS POST-OP FINDINGS OF LEFT KNEE RESIDUAL EDEMA, LIMITED ROM, STRENGTH DEFICITS, DECR PATELLAR MOB, AND Lt KNEE PAIN. FUNCTIONALLY, HE HAS BEEN OOW , LIMITED FUNCTIONAL MOBILITY, AND ALTERED ADLs. HE IS A GOOD CANDIDATE FOR SKILLED PT TO GUIDE HIM IN HIS POST -OP COURSE TO REGAIUN STRENGTH, MOBILITY, FUNCTIONAL INDEP W RESPECT TO REPAIR PRECAUTIONS. Frequency and Duration: The patient will be seen 2 x WK x 12 WKS Short Term Goals: *DECREASE Lt KNEE PAIN W ADLs *INCREASE Lt QUAD ACTIV-> FULL EXTENSION Lt KNEE; KNEE FLEX TO 90* *Pt PERFORM ACTIVE Lt SLR *ONGOING ED RE ACL / MENISCAL HEALING AND PROTOCOL GUIDELINES FOR GRAFT PROTECTION *IMPROVE OPPOSITE, Rt, LE HS FLEXIB *ADDRESS EFFICIENCY OF GAIT MECHANICS Shelter Goals: *FULL, PAINFREE AROM Lt KNEE *IMPROVE Lt LE STRENGTH AND PROPRIOCEPTION TO ALLOW FOR SAFE RETURN TO ADLs, ETC, CLEARED BY DR PANDA *Lt SLS x 15 SEC *IMPROVE LEFI SCORE (AT EVAL17/80) *INDEP HEP Treatment Plan: Modalities to reduce pain, spasms and effusion. Manual therapy to restore motion and function. Therapeutic exercise to improve strength and flexibility. Neuromuscular re-education for posture and balance. Therapeutic activities to return to functional activities of daily living. Electronically signed by: BIMAL HURTADO,PT Please sign and return to therapist. Thank you for your referral.
--- NOTE | 2023-10-04 13:49 | MHC.PT.OD ---
[facility] [place] Office [place] Office [place] Office [address] Traci Melendez [address] [phone] F: [phone] F: [phone] F: [phone] F: [phone] Physical Therapy Daily Note Diagnosis: S/P Left ACL reconstruction with allograft and lateral meniscus repair 09/01/2023 Dr. Kris Panda Date of Surgery: 09/01/23 Date of Evaluation: 09/09/23 Date of Treatment: 10/04/23 Treatments to Date: 7 Cancellations to Date: 0 No Shows to Date: 0 Authorized Visits: Insurance End Date: 10/08/23 Precautions/ Contraindications:PER Pt, FROM [facility] [employer]UJILLOP[employer] ->PWB Lt LE W BRACE AND CRUTCHES LATERAL MENISCAL REPAIR WITH ACL REPAIR (W ALLOGRAFT)-> PER BOGDAN AND WOMEN'S PROTOCOL-> AVOID OPEN KINETIC HAMSTRING STRENGTHENING x 6 WKS Subjective: Pt is 4 weeks, five days post op. Presents to office WBAT with brace locked, got rid of crutches this past Satuday. Overall doing well. Pain Score and Location: 2 LEFT KNEE Objective Flowsheet: Tests & Measures 10/01/23: LEFS score 21/80 today. Currently OOW, Not driving. Stairs ascending/descending one at a time, PWB with brace locked and bilateral axillary crutches. Has resumed sleeping in second level of home. Not performing household laundry. Waking up at night 2-3x/nightly. No longer taking medication for discomfort. Icing twice daily. Has been performing AAROM knee bends at home 3x daily, 10R. Limiting tolerance for standing/cooking I. 09/24/23:AROM Lt KNEE SUPINE0 to AAROM 90 degrees Fair + SLR NOt driving, currently OOW rates pain 2-17/10 Exercises Standing in parallel bars (unlocked brace to 40 degrees): for knee flexion<>ext QS x 2 sets 10R, step up 2inch step leading with R LE first x 2 sets 10R, step down leading with R LE first x 2 set 10R, standing heel raises x 2 set 10R with brace unlocked to 40 degrees, standing pre-gait exercise: hip abduction to taps to ground, standing hip extension x 2 sets 10R with brace open, Ambulated 20ft with brace unlocked to 40 slow pace to mat, SLR into flexion (therapist observing SLR good control no lag able to perform without brace in office x 3 sets 10R (completed bilaterally), prone hip extension, SL hip adduction x 3 sets 10R, AAROM heel slides with strap x 15R to 102 degrees, Passive knee extension with towel roll x 10 minutes with ice at end of session. Review of patella mobs for self care, education to refrain from pulling on inferior stitch which is poking out. Heel toe gait with brace unlocked to 40 degrees from parallel bars>mat this date, Education for pre-gait exercises in standing B: foot slides/ taps into flexion/ext/abd x10R Brace unlocked to 40 degrees for straightening> slight knee bend, bend to 40 flexion in standing, movement with no added tension x 2 sets 10R in standing. Brace locked back into extension at departure of PT visit. Modalities SUPINE: ICE APPLIED TO LEFT KNEE x 10 MIN, REVIEWED POST-OP COURSE AND ROM RESTRICTIONS Assessment: 10/04/23: Pt is a 23 y/o [employer] employee of [employer] employee, S/P Left ACL reconstruction with allograft and lateral meniscus repair 09/01/2023 Dr. Kris Panda. Pt is now post four weeks five days post op. He has weaned from use of axillary crutches as of last Wednesday. Today in the office we initiated CKC in the office with brace unlocked to 40 degrees for small 2 inch step-up/down, heel raises and pre gait tasks with good tolerance. AAROM flexion to to 102 degrees today. SLR strength is good. Today we initiated ambulating in the office with the brace unlocked to 40 degree for the first time. We discussed goal/plans moving ahead with goal of obtaining an updated order/script to obtain additional auth for PT sessions. Pt remains OOW, is not driving. He has not been taking ibuprofen and is icing twice daily post therex. Overall doing very well. He has been advised to keep brace locked for ambulation at this time and will address ability to open brace to 40 degrees after post op visit. THank you for this referral. He has full extension. He does have a small stitch piece extending out from inferior incision and he has been advised to refrain from pulling on this (will bring attention to /FRANCINE). 10/01/23: Pt is 4 weeks 2 days post op. Per protocol, pt now able to transiton to WBAT (>4 weeks post op). Discussed ability to wean from use of two crutches to use of one crutch (R side) then down to no crutches as able. Introduced standing CKC with opening of brace to 40 degrees for static TKE with no added weight with good tolerance x 10 R in the office (not yet added for home). Pt AAROM flexion to 98 degrees. Pt educated need to keep brace locked in extension at this time, will work on opening knee brace opening in office. 09/24/23: AAROM 0 to 90 degrees. Pt is currently not driving, remains OOW (using bilateral axillary crutches, PWB 25% L LE.) Pt compliant with HEP, was using motrin prn, waking at night due to stiffness/discomfort in not being able to bend knee. Pt's inferior incision has lost blackened scab, noted what appears to edge of stitch hanging out edge of incision. Pt educated re: avoidance of pulling or touching this. Pt has a a follow up on 10/07/23 with surgeon. Brace remains locked in extension at all times until next follow up with surgeon. Pt will benefit from ongoing PT twice weekly x 6 weeks to address impairments and progress per protocol to prepare for RTW goals. 09/17/23: AROM 0 degrees extension AAROM flexion to 86 degrees. Improving strength with SLR. Pt continues to be PWB, exhibits good carryover and self care. Pt educated re: patellar mobs. gentle/painfree for self care. Necrotic scab along inferior incision remains. Pt to be seen in PT twice weekly. 09/24/23: L knee 0 to 90. Improving strength with SLR. 09/13/23: AAROM -2 to 60 degrees AAROM. Reviewed sequencing for crutch use. Pt compliant with brace use. Good carryover of home program. Added isometric QS set in 30 degrees flexion this date. Educated re: goals of PT, findings, and recommendations. Pt to see ortho for follow up again on 10/07/23. Pt was approved 2x/week x 4 weeks (8 visits through 10/08/23 (will be cancelling Wed appt this week due to doing well). 23 YO MALE PRESENTS TODAY S/P 09/01/23 Lt ACL W ALLOGRAFT AND LATERAL MENISCAL TEAR REPAIR- HE IS CURRENTLY WEARING HIS Lt LE BRACE AND AMB W CRUTCHES. THE Pt RESIDES W HIS PARENTS IN A 2 LEVEL HOME, BEDROOMS UPSTAIRS. HE HAS POST-OP FINDINGS OF LEFT KNEE RESIDUAL EDEMA, LIMITED ROM, STRENGTH DEFICITS, DECR PATELLAR MOB, AND Lt KNEE PAIN. FUNCTIONALLY, HE HAS BEEN OOW , LIMITED FUNCTIONAL MOBILITY, AND ALTERED ADLs. HE IS A GOOD CANDIDATE FOR SKILLED PT TO GUIDE HIM IN HIS POST -OP COURSE TO REGAIUN STRENGTH, MOBILITY, FUNCTIONAL INDEP W RESPECT TO REPAIR PRECAUTIONS. PT Plan: NMES, QUAD SETS, ROM, EDEMA MANAGEMENT W ELEV AND STM, ICE, GAIT MECH, GRADUAL EXERCISE PROGRESSION PER PROTOCOL, PROPRIOCEPTION Short Term Goals: *DECREASE Lt KNEE PAIN W ADLs *INCREASE Lt QUAD ACTIV-> FULL EXTENSION Lt KNEE; KNEE FLEX TO 90* *Pt PERFORM ACTIVE Lt SLR *ONGOING ED RE ACL / MENISCAL HEALING AND PROTOCOL GUIDELINES FOR GRAFT PROTECTION *IMPROVE OPPOSITE, Rt, LE HS FLEXIB *ADDRESS EFFICIENCY OF GAIT MECHANICS [employer] Goals: *FULL, PAINFREE AROM Lt KNEE *IMPROVE Lt LE STRENGTH AND PROPRIOCEPTION TO ALLOW FOR SAFE RETURN TO ADLs, ETC, CLEARED BY DR PANDA *Lt SLS x 15 SEC *IMPROVE LEFI SCORE (AT EVAL17/80) *INDEP HEP Electronically signed by: Trini Henderson, PT, DPT
== END 2024-09-01 09:57 | disposition home or self-care (01) ==
LOC: HO.PTWFD 13:00
PROVIDERS: PCP Internal Medicine; Visit Provider Physician Assistant
DX: S83.512A Sprain of anterior cruciate ligament of left knee, initial encounter (principal); S83.201A Bucket-handle tear of unspecified meniscus, current injury, left knee, initial encounter
CPT/HCPCS: 97110; 97116; 97140; 97150; 97162; 97164; 97535

== ENCOUNTER 2024-05-23 06:46 | Outpatient (REF) | payer BC, SELFPAY ==
[2024-05-23 06:55] LABS: MANUAL DIFF FLAG NO
[2024-05-23 07:50] LABS: Basophils Absolute Auto 0.1 X10*3/uL (0.0-0.2); Basophils Percent Auto 0.8 % (0-2); Eosinophils Absolute Auto 0.2 X10*3/uL (0.0-0.4); Eosinophils Percent Auto 3.1 % (0-4); Hemoglobin 16.1 g/dl (14.0-18.0); Imm Gran Abs Auto 0.01 X10*3/uL (0.00-0.03); Imm Gran Pct Auto 0.1 % (0.0-0.4); Lymphocytes Absolute Auto 2.8 X10*3/uL (1.2-4.9); Lymphocytes Percent Auto 37.6 % (20-40); Mean Corpuscular HGB Conc 34.3 g/dl (31.0-36.0); Mean Corpuscular Hemoglobin 30.5 pg (27.0-33.0); Mean Platelet Volume 10.4 fL (9.4-12.4); Monocytes Absolute Auto 0.8 X10*3/uL (0.1-1.2); Monocytes Percent Auto 10.7 % (2-11); Neutrophils Absolute Auto 3.6 x10*3/uL (2.0-8.3); Neutrophils Percent Auto 47.7 % (45-73); Platelet Count 261 X10*3/uL (160-400); Red Blood Count 5.28 X10*6/uL (4.60-5.80); Red Cell Distribution Width 11.9 % (11.0-16.0); White Blood Count 7.5 X10*3/uL (4.8-10.8)
[2024-05-23 08:31] LABS: Anion Gap 12 (12-20); Blood Urea Nitrogen 11 mg/dL (9-16); Calcium 9.6 mg/dL (8.4-10.2); Carbon Dioxide 27 mmol/L (22-29); Chloride 109 mmol/L (96-108); Cholesterol 102 mg/dL (<200); Estimated Glomerular Filt Rate > 60; Glucose Random 95 mg/dL (60-115); Potassium 3.8 mmol/L (3.3-5.1); Sodium 144 mmol/L (135-145)
== END 2024-05-23 06:47 | disposition home or self-care (01) ==
LOC: HO.LAB 06:46
PROVIDERS: PCP Internal Medicine; Visit Provider Internal Medicine
DX: F98.8 Other specified behavioral and emotional disorders with onset usually occurring in childhood and adolescence (principal); Z20.2 Contact with and (suspected) exposure to infections with a predominantly sexual mode of transmission
CPT/HCPCS: 36415; 80048; 82465; 85025

== ENCOUNTER 2024-06-03 10:08 | Outpatient (REF) | payer BC, SELFPAY ==
[2024-06-03 12:17] LABS: Thyroid Stimulating Hormone 1.74 uIU/mL (0.32-4.0)
== END 2024-06-03 10:09 | disposition home or self-care (01) ==
LOC: HO.LAB 10:08
PROVIDERS: PCP Internal Medicine; Visit Provider Internal Medicine
DX: R94.6 Abnormal results of thyroid function studies (principal); R63.5 Abnormal weight gain
CPT/HCPCS: 36415; 84439; 84443

== ENCOUNTER 2024-07-03 13:35 | Outpatient (AMB) | payer BC, SELFPAY ==
--- NOTE | 2024-07-03 13:51 | MHC.OFFVIS ---
Intake Visit Reasons: OV-LT ACL w/ allo 09/01/23 NE Intake Note: Mk is a 23 year old male who presents today for a follow up appointment s/p left ACL w/ allo 09/01/23 NE. Patient reports that he is doing well with no concerns. Allergies No Known Allergies Allergy (Verified 04/07/24 10:11) HPI HPI OV-LT ACL w/ allo 09/01/23 NE: Details: Mk is a 23 year old male who presents today for a follow up appointment s/p left ACL w/ allo 09/01/23 NE. Patient reports that he is doing well with no concerns. 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 No effusion. Full range of motion. Negative Agustín's. There is a 1+ Sarthak's with a stable endpoint and negative pivot shift. Assessment & Plan Assessment & Plan (1) ACL tear: Comment: Left ACL reconstruction with allograft and lateral meniscus repair 09/01/2023 Dr. Kris Farah Code(s): S83.519A - Sprain of anterior cruciate ligament of unspecified knee, initial encounter Category: Medical Qualifiers: Encounter type: subsequent encounter Laterality: left Qualified Code(s): S83.512D - Sprain of anterior cruciate ligament of left knee, subsequent encounter Plan: Status post ACL reconstruction with meniscus repair doing well. He has returned to work and I recommend that he may return to normal activities after 12 months. These include activities like snow organ skiing. He understands this and will let me know if he has any problems that arise but no further appointments are necessary at this time. Coding Level of Care Code Est Pt Level 3 (05322) Diagnoses Rupture of anterior cruciate ligament of left knee, subsequent encounter S83.512D Encounter type: subsequent encounter Laterality: left
== END 2024-07-03 14:30 | disposition home or self-care (01) ==
PROVIDERS: PCP Internal Medicine; Visit Provider Orthopaedic Surgery
DX: S83.512D Sprain of anterior cruciate ligament of left knee, subsequent encounter (principal)
CPT/HCPCS: 99213

== ENCOUNTER → 2024-07-03 13:35 | Outpatient (BNVA) | payer BC, SELFPAY | PROVIDERS: PCP Internal Medicine; Visit Provider Orthopaedic Surgery ==

== ENCOUNTER 2025-05-04 13:04 | Outpatient (AMB) | payer BC, SELFPAY ==
--- NOTE | 2025-05-04 11:46 | A.OFFPC_ITS ---
Vital Signs 05/04/25 13:14 Height 5 ft 9 in Weight 90.265 kg BMI 29.4 BP 128/80 Blood Pressure Location Lt brachial Position Sitting Pulse 80 Pulse Source Pulse Oximeter Temp 97.2 F Temp Source Temporal Artery Scan Pulse Oximetry (%) 98 Oxygen Delivery Method Room Air Intake Visit Reasons: Physical - Pb pt - see comments Customer Relations Specialist Required: No Accompanied by: Self / Same As Patient Allergies No Known Allergies Allergy (Verified 05/04/25 11:47) Medication List - Last Reconciled 05/04/25 by ODILIA Thakkar No Known Home Meds Tobacco use date assessed: 05/04/25 Dental Screening Dental Screen Date: 05/04/25 Did you have a dental visit in the last 12 months?: Yes Did you have a dental problem in the last 6 months where you did not have access to dental care?: No HPI HPI Comments History of Present Illness Details 25-year-old male without any significant past medical history presenting to the office today for annual physical exam and to establish care. Lives with parents and little brother. 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 No alcohol. No history of cigarette smoking. No drugs including MJ. Follows a healthy diet. Previously was a swimmer, plans to resume. Prior PCP Dr. Ambriz, last seen June 2024 Hx ADHD- no longer on meds, doing well Concerns: None Health Maintenance- Eye exams-wears glasses. Has not been to eye doctor in several years Dentist twice yearly Wears sunscreen, has never had a skin check Colonoscopies to start at age 45 Wear seatbelt ROS: General: No fevers, malaise, unintentional weight loss HEENT: No blurred vision, diplopia. No sore throat, nasal congestion, rhinorrhea, sinus pain, ear pain. No hearing loss Neck - no adenopathy Cardiovascular: No chest pain, palpitations, or leg edema Respiratory: No shortness of breath, wheezing, cough GI: No dysphagia, odynophagia, globus sensation. No abdominal pain, nausea, vomiting, diarrhea, constipation, melena, hematochezia : No dysuria, hematuria, increased urinary frequency, decreased urinary output. No testicular swelling or pain. No penile discharge MSK: No myalgia, back pain, arthralgias Neuro: No headaches, weakness, paresthesias Psych: no depression/anxiery. No AH/VH. No SI/HI Skin: No rashes or lesions EXAM: Constitutional - Awake and Alert, No apparent distress Eyes - PERRLA, EOMI. Anicteric Ears - external ears normal, canals clear, TMs intact and pearly tony with good cone of light Nose- septum midline, nares clear, no sinus tenderness Mouth/throat- mucosa moist, tongue and uvula midline, no erythema/edema or tonsillar adenopathy. Neck-trachea midline, thyroid symmetric without palpable nodules, no adenopathy Cardiovascular - S1S2, RRR, No edema Respiratory - Normal lung expansion, Normal respiratory effort, No respiratory distress, CTA bilaterally Gastrointestinal - NT / ND; +BS; No rebound or guarding - No CVA tenderness Extremities - no calf tenderness bilaterally, no swelling Musculoskeletal - Normal inspection, normal ROM Skin - Warm/Dry, no concerning lesions Neurological - Alert & oriented x3, CN II-XII in tact, 5/5 strength BUE and BLE, 2+ patellar reflexes, sensation intact Psychological - Appropriate affect [facility] Medical History Acute meniscal tear of knee Surgical History Surgical history unknown Family History (Updated 05/04/25 @ 13:31 by ODILIA Thakkar) Mother Hypothyroidism Father Prostate cancer Maternal Grandmother FH: breast cancer Paternal Grandmother FH: breast cancer Social History Household Members: Family Housing: House Alcohol intake: never Patient Tobacco Use Status: Never used Tobacco e-Cigarette/Vaping Use: Never Used Current occupational status: employed 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 1. Little interest or pleasure in doing things: not at all 2. Feeling down, depressed, or hopeless: not at all 3. Trouble falling or staying asleep, or sleeping too much: not at all 4. Feeling tired or having little energy: not at all 5. Poor appetite or overeating: not at all 6. Feeling bad about yourself - or that you are a failure or have let yourself or your family down: not at all 7. Trouble concentrating on things, such as reading the newspaper or watching television: not at all 8. Moving or speaking so slowly that other people could have noticed. Or the opposite - being so fidgety or restless that you have been moving around a lot more than usual: not at all 9. Thoughts that you would be better off or of hurting yourself in some wa y: not at all Total score: 0 Source: Developed by Drs. Quoc Fu, Christina Rosa, Cruz Morales and colleagues, with an educational tyshawn from [employer]. Thrive Questionnaire Date Thrive assessed: 05/04/25 I am a: Patient Within the past 12 months, did the food you bought not last and you didn't have the money to get more?: Never true Within the past 12 months, did you worry whether your food would run out before you got money to buy more?: Never true Do you have trouble paying for medicines?: No Do you have trouble getting transportation to medical appointments?: No Do you have trouble paying your heating and electricity bill?: No Do you have trouble taking care of your child, family member or friend?: No Do you have trouble with day-to-day activities such as bathing, preparing meals, shopping, managing finances, etc.?: No Are you currently unemployed and looking for a job?: No Are you interested in more education?: No THRIVE Score: 0 AUDIT C Alcohol Use Questionnaire (AUDIT-C) 1. How often do you have a drink containing alcohol?: Never 3. How often do you have six or more drinks on one occasion?: Never Total Score: 0 MOSES-7 AMB Questionnaire MOSES-7 Date MOSES - 7 assessed: 05/04/25 Feeling nervous, anxious, or on edge: 0 = Not at all Not being able to stop or control worryin = Not at all Worrying too much about different things: 0 = Not at all Trouble relaxin = Not at all Being so restless that it is hard to sit still: 0 = Not at all Becoming easily annoyed or irritable: 0 = Not at all Feeling afraid as if something awful might happen: 0 = Not at all Total MOSES-7 score (0-4 normal; 5-9 mild; 10-14 moderate; 15-21 severe): 0 Source: Developed by Drs. Quoc Fu, Christina Rosa, Cruz Moralse and colleagues, with an educational tyshawn from [employer]. Physical exam (Primary Care) Vital Signs: Last Vital Signs Temp 97.2 F 05/04/25 13:14 Pulse 80 05/04/25 13:14 BP 128/80 05/04/25 13:14 Pulse Ox 98 05/04/25 13:14 Oxygen Delivery Method Room Air 05/04/25 13:14 BMI result Body Mass Index 29.4 Tobacco/Smoking Status: Tobacco use Status Tobacco use date assessed 05/04/25 05/04/25 11:48 Patient Tobacco Use Status Never used Tobacco 05/04/25 11:48 e-Cigarette/Vaping Use Never Used 05/04/25 11:48 PHQ-9: PHQ-9 Score PHQ-9: Total score 0 05/04/25 13:18 Thrive Assessment: Date of Thrive Assessment Date Thrive assessed 05/04/25 05/04/25 11:48 Coding Level of Care Code New Pt Prev Care 18-39yr([id number] Diagnoses Routine medical exam Z00.00 Assessment & Plan Assessment & Plan (1) Routine medical exam: Code(s): Z00.00 - Encounter for general adult medical examination without abnormal findings Plan: 25-year-old male presenting for annual physical exam. Plan as below Plan Routine screening labs as ordered below Continue with screening colonoscopies and PSA Continue following for annual skin exams and use sun protection Annual eye exams Wear seat belt in car Recommend regular exercise and healthy diet Follow up in year for annual exam Refer to dermatology Orders: Orders Complete Blood Count Auto Diff Today Z00.00 - Encounter for general adult medical examination without abnormal findings Lipid Panel Today Z00.00 - Encounter for general adult medical examination without abnormal findings Liver Panel Today Z00.00 - Encounter for general adult medical examination without abnormal findings Basic Metabolic Panel Today Z00.00 - Encounter for general adult medical examination without abnormal findings Referrals Dermatology Referral Z12.83 - Encounter for screening for malignant neoplasm of skin
[2025-05-04 13:14] VITALS: BP 128/80; PULSE 80; TEMP 36.2; O2SAT 98; BMI 29.4
--- OUTSIDE RECORDS SUMMARY | 2025-05-04 14:25 | XMS_ITS | Encounter Summary ---
Author Organization [facility] Address [address] [place] [address] Phone Care Team Providers Care Oracle Soa Developer Name Role Phone Juan Pablo Patino MD Primary Care Provider [phone] Encounter Details Date Type Department Care Team (Late st Contact Info) Description 05/02/2014 Documentation [facility] Family Medicine [address] [place] [address] Family Medicine, Physician [address] [place], [place] [id number] Social History Tobacco Use Types Packs/Day Years Used Date Smoking Tobacco: Never Assessed Sex and Gender Information Value Date Recorded Sex Assigned at Not on file Legal Sex Male 5:12 PM EDT Gender Identity Not on file Sexual Orientation Not on file documented as of this encounter Plan of Treatment Not on file documented as of this encounter Visit Diagnoses Not on filedocumented in this encounter Care Teams [employer] So[employer] Developer Relationship Specialty Start Date End Date Juan Pablo Patino MD [address] [place] [address] PCP - General 03/19/17 09/04/19 documented as of this encounter
--- OUTSIDE RECORDS SUMMARY | 2025-05-04 14:25 | XMS_ITS | Encounter Summary ---
Author Organization [facility] Address [address] [place] [address] Phone Care Team Providers Care Survey Coordinator Name Role Phone Juan Pablo Patino MD Primary Care Provider [phone] Encounter Details Date Type Department Care Team (Late st Contact Info) Description 06/19/2013 Documentation [facility] Family Medicine [address] [place] [address] Family Medicine, Physician [address] [place], [place] [phone] Social History Tobacco Use Types Packs/Day Years [...] on filedocumented in this encounter Care Teams Survey Coordinator Relationship Specialty Start Date End Date Juan Pablo Patino MD [address] [place] [address] PCP - General 03/19/17 09/04/19 documented as of this encounter
--- OUTSIDE RECORDS SUMMARY | 2025-05-04 14:25 | XMS_ITS | Clinical Summary ---
Author Organization [facility] Address [address] [place] [address] Phone Care Team Providers Care Planner Intern Name Role Phone Unavailable Primary Care Provider Unavailabl e Allergies No known active allergies Medications No known medications Active Problems Problem Noted Date Diagnosed Date Left knee pain 05/11/2017 Immunizations Immunization Administration Dates Next Due DTaP 5 01/28/2004, 1,2000,05/27,2000 HPV, Quadrivalent 08/11/2012,03/08/2012,01/06/20 12 Hep A, ped/adol 05/01/2014,12/22/2010 Hep B, ped/adol 2000,2000,2000 Hib (HbOC) 04/26/2001, 0,2000,03/26 IPV 01/28/2004, 1,2000,03/26 Influenza Split 06/28/2012 Influenza, injectable, quadrivalent 05/06/2016 Influenza, injectable, quadr ivalent, preservative free 05/15/2018,04/26/2017,05/06/2015,05/01,06/17/2013 Influenza, injectable, trivalent 05/13/2009,07/09 MMR 01/28/2004,04/26/2001 Meningococcal B Trumenba 03/31/2019,08/04/2018 Meningococcal Conj (Menactra) MCV4P 05/06/2016,0 01/06/2012 Pneumococcal Conjugate 2001,1999,2000,03/26 Tdap 01/06/2012 Varicella 10/03/2008,2001 Family History Medical History Relation Name Comments Asthma Brother 1 Rohan No Known Problems Brother 2 Julio Hypertension Father Alo No Known Problems Mother Aleah Relation Name Status Comments Brother 1 Macavish Alive Brother: Alive and well, Asthma Brother 2 Julio Alive Father Alo Alive Father: Sarcoid osis, Cancer, prostate Mother Aleah Alive Mother: Asthma, mild, Thyroid problem Other No family histo ry of Strabismus, No family history of Hyperlipidemia, No family history of Developmental dislocation of hip, No family history of ADD/ADHD, Family history of Asthma, No family history of Diabetes mellitus, No family history of CVA (Stroke), No family history of Deafness, No family history of Migraines, No family history of Obesity, No family history of Cancer, No family history of Seizure disorder, No family history of Sudden /OR under age 55, Family history of Heart disease Social History Tobacco Use Types Packs/Day Years Used Date Smoking Tobacco: Never Smokeless Tobacco: Never Comments:Never smoker Alcohol Use Standard Drinks/Week Comments No 0 (1 standard drink = 0.6 oz pur e alcohol) Hunger/Food Answer Date Recorded No 08/27/2018 Stable Housing Answer Date Recorded No 08/12/2019 Transportation Concerns Answer Date Rec orded No 08/27/2018 Hazards in Home Answer Date Recorded No 08/27/2018 Financing Utilities Answer Date Recorde d No 08/27/2018 Safety at Home Answer Date Recorded No 08/27/2018 Outside Support Answer Date Recorded No 08/27/2018 Understanding Health Concerns Answer Da te Recorded No 08/27/2018 Financing Health Concerns Answer Date R ecorded No 08/27/2018 Missing School or Work Answer Date Lisandro rded No 08/27/2018 Sex and Gender Information Value Date Recorded Sex Assigned at Not on file Legal Sex Male 5:12 PM EDT Gender Identity Not on file Sexual Orientation Not on file Last Filed Vital Signs Vital Sign Reading Time Taken Comments Blood Pressure 124/60 08/04/2018 3:10 PM EST Pulse 61 08/04/2018 3:00 PM EST Temperature 36.7 C (98.1 F) 12/17/2017 2:48 PM EDT Respiratory Rate - - Oxygen Saturation - - Inhaled Oxygen Concentration - - Weight 70.9 kg (156 lb 3.2 oz) 08/04/2018 3:00 P M EST Height 175.3 cm (5' 9 ) 08/04/2018 3:00 PM EST Body Mass Index 23.07 08/04/2018 3:00 PM EST Plan of Treatment Health Maintenance Due Date Last Done Comments DTaP,Tdap,and Td Vaccines (7 - Td or Tdap) 01/05/2022 01/06/2012, 01/28/2004, 07/28/2001, Additional history exists Influenza Vaccines (#1) 2025 05/15/20 18, 04/26/2017, 05/06/2016, Additional history exists COVID-19 Vaccine (2023-2 5 season) 2025 Hepatitis B Vaccines Completed 2000, 2000, 2000 Pneumococcal Vaccine Completed 2001, 2000, 2000, Additional history exists HIB Vaccines Completed 04/26/2001, 07/09, 2000, Additional history exists IPV Vaccines Completed 01/28/2004, 07/10, 2000, Additional history exists MMR Vaccines Completed 01/28/2004, 04/26/2001 Varicella Vaccines Completed 10/03/2008, 2001 HPV Vaccines Completed 08/11/2012, 07/08/2011, 01/06/2012 Hepatitis A Vaccines Completed 05/01/2014, 12/23/19 11 Meningococcal Vaccine Completed 05/06/2016, 012 Men B Vaccine Completed 03/31/2019, 08/04/2018
--- OUTSIDE RECORDS SUMMARY | 2025-05-04 14:25 | XMS_ITS | Encounter Summary ---
Author Organization [facility] Address [address] [place] [address] Phone Care Team Providers Care Carver And Checkerer Specials Name Role Phone Juan Pablo Patino MD Primary Care Provider [phone] Encounter Details Date Type Department Care Team (Late st Contact Info) Description 01/07/2012 Documentation [facility] [place] [address] [place] [address] Family Medicine, Physician [address] [place], [place] [phone] Social History Tobacco Use Types Packs/Day Years [...] on filedocumented in this encounter Care Teams Carver And Checkerer Specials Relationship Specialty Start Date End Date Juan Pablo Patino MD [address] [place] [address] PCP - General 03/19/17 09/04/19 documented as of this encounter
--- OUTSIDE RECORDS SUMMARY | 2025-05-04 14:25 | XMS_ITS | Encounter Summary ---
Author Organization [facility] Address [address] [place] [address] Phone Care Team Providers Care Plumbing Service Technician Name Role Phone Juan Pablo Patino MD Primary Care Provider [phone] Encounter Details Date Type Department Care Team (Late st Contact Info) Description 06/29/2012 [place] [facility] [place] [address] [place] [address] Family Medicine, Physician [address] [place], [place] [phone] Social History Tobacco Use Types Packs/Day Years [...] on filedocumented in this encounter Care Teams Plumbing Service Technician Relationship Specialty Start Date End Date Juan Pablo Patino MD [address] [place] [address] PCP - General 03/19/17 09/04/19 documented as of this encounter
--- OUTSIDE RECORDS SUMMARY | 2025-05-04 14:25 | XMS_ITS | Encounter Summary ---
Author Organization [facility] Address [address] [place] [address] Phone Care Team Providers Care Preschool Paraprofessional Name Role Phone Juan Pablo Patino MD Primary Care Provider [phone] Encounter Details Date Type Department Care Team (Late st Contact Info) Description 08/12/2012 [place] [facility] [place] [address] [place] [address] Family Medicine, Physician [address] [place], [place] [phone] Social History Tobacco Use Types Packs/Day Years [...] on filedocumented in this encounter Care Teams Preschool Paraprofessional Relationship Specialty Start Date End Date Juan Pablo Patino MD [address] [place] [address] PCP - General 03/19/17 09/04/19 documented as of this encounter
--- OUTSIDE RECORDS SUMMARY | 2025-05-04 14:25 | XMS_ITS | Encounter Summary ---
Author Organization [facility] Address [address] [place] [address] Phone Care Team Providers Care Provisioning Specialist Name Role Phone Juan Pablo Patino MD Primary Care Provider [phone] Encounter Details Date Type Department Care Team (Late st Contact Info) Description 05/02/2014 Documentation [facility] [place] [facility] [address] [place] [address] Family Medicine, Physician [address] [place], [place] [phone] Social History Tobacco Use Types Packs/Day Years [...] on filedocumented in this encounter Care Teams Provisioning Specialist Relationship Specialty Start Date End Date Juan Pablo Patino MD [address] [place] [address] PCP - General 03/19/17 09/04/19 documented as of this encounter
--- OUTSIDE RECORDS SUMMARY | 2025-05-04 14:25 | XMS_ITS | Encounter Summary ---
Author Organization [facility] Address [address] [place] [address] Phone Care Team Providers Care Time Piece Repairer Name Role Phone Juan Pablo Patino MD Primary Care Provider [phone] Encounter Details Date Type Department Care Team (Late st Contact Info) Description 01/07/2012 Documentation [facility] [place] [address] [place] [address] Family Medicine, Physician [address] [place], [place] [phone] Social History Tobacco Use Types Packs/Day Years [...] on filedocumented in this encounter Care Teams Time Piece Repairer Relationship Specialty Start Date End Date Juan Pablo Patino MD [address] [place] [address] PCP - General 03/19/17 09/04/19 documented as of this encounter
--- OUTSIDE RECORDS SUMMARY | 2025-05-04 14:25 | XMS_ITS | Encounter Summary ---
Author Organization [facility] Address [address] [place] [address] Phone Care Team Providers Care Cooler Tender Name Role Phone Juan Pablo Patino MD Primary Care Provider [phone] Encounter Details Date Type Department Care Team (Late st Contact Info) Description 01/07/2012 Documentation [place] Family Medicine [address] [place] [address] Family Medicine, Physician [address] [place], [place] [phone] Social History Tobacco Use Types Packs/Day Years [...] on filedocumented in this encounter Care Teams Cooler Tender Relationship Specialty Start Date End Date Juan Pablo Patino MD [address] [place] [address] PCP - General 03/19/17 09/04/19 documented as of this encounter
--- OUTSIDE RECORDS SUMMARY | 2025-05-04 14:25 | XMS_ITS | Encounter Summary ---
Author Organization [facility] Address [address] [place] [address] Phone Care Team Providers Care Oncology Registrar Name Role Phone Juan Pablo Patino MD Primary Care Provider [phone] Encounter Details Date Type Department Care Team (Late st Contact Info) Description 05/07/2015 [place] [facility] [place] [address] [place] [address] Family Medicine, Physician [address] [place], [place] [phone] Social History Tobacco Use Types Packs/Day Years [...] on filedocumented in this encounter Care Teams Oncology Registrar Relationship Specialty Start Date End Date Juan Pablo Patino MD [address] [place] [address] PCP - General 03/19/17 09/04/19 documented as of this encounter
--- OUTSIDE RECORDS SUMMARY | 2025-05-04 14:25 | XMS_ITS | Encounter Summary ---
Author Organization [facility] Address [address] [place] [address] Phone Care Team Providers Care Marine Drafter Name Role Phone Juan Pablo Patino MD Primary Care Provider [phone] Encounter Details Date Type Department Care Team (Late st Contact Info) Description 05/07/2016 [place] [facility] [place] [address] [place] [address] Family Medicine, Physician [address] [place], [place] [phone] Social History Tobacco Use Types Packs/Day Years Used Date Smoking Tobacco: Never Comments:Never smoker Sex and Gender Information Value Date Recorded Sex Assigned at Not on file Legal Sex Male 5:12 PM EDT Gender Identity Not on file Sexual Orientation Not on file documented as of this encounter Plan of Treatment Not on file documented as of this encounter Visit Diagnoses Not on filedocumented in this encounter Care Teams Marine Drafter Relationship Specialty Start Date End Date Juan Pablo Patino MD [address] [place] [address] PCP - General 03/19/17 09/04/19 documented as of this encounter
--- OUTSIDE RECORDS SUMMARY | 2025-05-04 14:25 | XMS_ITS | Encounter Summary ---
Author Organization [facility] Address [address] [place] [address] Phone Care Team Providers Care Leather Scrubber Name Role Phone Juan Pablo Patino MD Primary Care Provider [phone] Encounter Details Date Type Department Care Team (Late st Contact Info) Description 06/19/2013 Documentation [facility] [place] [address] [place] [address] Family Medicine, Physician [address] [place], [place] [phone] Social History Tobacco Use Types Packs/Day Years [...] on filedocumented in this encounter Care Teams Leather Scrubber Relationship Specialty Start Date End Date Juan Pablo Patino MD [address] [place] [address] PCP - General 03/19/17 09/04/19 documented as of this encounter
--- OUTSIDE RECORDS SUMMARY | 2025-05-04 14:25 | XMS_ITS | Encounter Summary ---
Author Organization [facility] Address [address] [place] [address] Phone Care Team Providers Care Fermenting Cellars Receiver Name Role Phone Juan Pablo Patino MD Primary Care Provider [phone] Encounter Details Date Type Department Care Team (Late st Contact Info) Description 03/09/2012 Documentation [facility] [place] [address] [place] [address] Family Medicine, Physician [address] [place], [place] [phone] Social History Tobacco Use Types Packs/Day Years [...] on filedocumented in this encounter Care Teams Fermenting Cellars Receiver Relationship Specialty Start Date End Date Juan Pablo Patino MD [address] [place] [address] PCP - General 03/19/17 09/04/19 documented as of this encounter
--- OUTSIDE RECORDS SUMMARY | 2025-05-04 14:25 | XMS_ITS | Encounter Summary ---
Author Organization [facility] Address [address] [place] [address] Phone Care Team Providers Care Mechanical Facilities Technician Name Role Phone Juan Pablo Patino MD Primary Care Provider [phone] Encounter Details Date Type Department Care Team (Late st Contact Info) Description 05/07/2016 Documentation [facility] [place] [address] [place] [address] Family Medicine, Physician [address] [place], [place] [phone] Social History Tobacco Use Types Packs/Day Years [...] on filedocumented in this encounter Care Teams Mechanical Facilities Technician Relationship Specialty Start Date End Date Juan Pablo Patino MD [address] [place] [address] PCP - General 03/19/17 09/04/19 documented as of this encounter
--- OUTSIDE RECORDS SUMMARY | 2025-05-04 14:25 | XMS_ITS | Encounter Summary ---
Author Organization [facility] Address [address] [place] [address] Phone Care Team Providers Care Daily Sales Audit Clerk Name Role Phone Juan Pablo Patino MD Primary Care Provider [phone] Encounter Details Date Type Department Care Team (Late st Contact Info) Description 05/07/2015 Documentation [facility] [place] [address] [place] [address] Family Medicine, Physician [address] [place], [place] [phone] Social History Tobacco Use Types Packs/Day Years [...] on filedocumented in this encounter Care Teams Daily Sales Audit Clerk Relationship Specialty Start Date End Date Juan Pablo Patino MD [address] [place] [address] PCP - General 03/19/17 09/04/19 documented as of this encounter
--- OUTSIDE RECORDS SUMMARY | 2025-05-04 14:25 | XMS_ITS | Encounter Summary ---
Author Organization [facility] Address [address] [place] [address] Phone Care Team Providers Care Bag Machine Set Up Operator Name Role Phone Juan Pablo Patino MD Primary Care Provider [phone] Encounter Details Date Type Department Care Team (Late st Contact Info) Description 05/02/2014 Documentation [facility] [place] [address] [place] [address] Family Medicine, Physician [address] [place], [place] [phone] Social History Tobacco Use Types Packs/Day Years [...] on filedocumented in this encounter Care Teams Bag Machine Set Up Operator Relationship Specialty Start Date End Date Juan Pablo Patino MD [address] [place] [address] PCP - General 03/19/17 09/04/19 documented as of this encounter
--- OUTSIDE RECORDS SUMMARY | 2025-05-04 14:25 | XMS_ITS | Encounter Summary ---
Author Organization [facility] Address [address] [place] [address] Phone Care Team Providers Care Communications Tower Climber Name Role Phone Juan Pablo Patino MD Primary Care Provider [phone] Encounter Details Date Type Department Care Team (Late st Contact Info) Description 08/12/2012 Documentation [facility] [place] [address] [place] [address] Family Medicine, Physician [address] [place], [place] [phone] Social History Tobacco Use Types Packs/Day Years [...] on filedocumented in this encounter Care Teams Communications Tower Climber Relationship Specialty Start Date End Date Juan Pablo Patino MD [address] [place] [address] PCP - General 03/19/17 09/04/19 documented as of this encounter
--- OUTSIDE RECORDS SUMMARY | 2025-05-04 14:25 | XMS_ITS | Encounter Summary ---
Author Organization [facility] Address [address] [place] [address] Phone Care Team Providers Care Inspector Repairer Name Role Phone Juan Pablo Patino MD Primary Care Provider [phone] Encounter Details Date Type Department Care Team (Late st Contact Info) Description 03/09/2012 Documentation [facility] [place] [address] [place] [address] Family Medicine, Physician [address] [place], [place] [phone] Social History Tobacco Use Types Packs/Day Years [...] on filedocumented in this encounter Care Teams Inspector Repairer Relationship Specialty Start Date End Date Juan Pablo Patino MD [address] [place] [address] PCP - General 03/19/17 09/04/19 documented as of this encounter
--- OUTSIDE RECORDS SUMMARY | 2025-05-04 14:25 | XMS_ITS | Encounter Summary ---
Author Organization [facility] Address [address] [place] [address] Phone Care Team Providers Care Auxiliary Engineer Name Role Phone Juan Pablo Patino MD Primary Care Provider [phone] Encounter Details Date Type Department Care Team (Late st Contact Info) Description 04/05/2013 [place]ation [facility] [place] [address] [place] [address] Family Medicine, Physician [address] [place], [place] [phone] Social History Tobacco Use Types Packs/Day Years [...] on filedocumented in this encounter Care Teams Auxiliary Engineer Relationship Specialty Start Date End Date Juan Pablo Patino MD [address] [place] [address] PCP - General 03/19/17 09/04/19 documented as of this encounter
--- OUTSIDE RECORDS SUMMARY | 2025-05-04 14:25 | XMS_ITS | Encounter Summary ---
Author Organization [facility] Address [address] [place] [address] Phone Care Team Providers Care Cone Trucker Name Role Phone Juan Pablo Patino MD Primary Care Provider [phone] Encounter Details Date Type Department Care Team (Late st Contact Info) Description 08/29/2015 Documentation [facility] [place] [address] [place] [address] Family Medicine, Physician [address] [place], [place] [phone] Social History Tobacco Use Types Packs/Day Years [...] on filedocumented in this encounter Care Teams Cone Trucker Relationship Specialty Start Date End Date Juan Pablo Patino MD [address] [place] [address] PCP - General 03/19/17 09/04/19 documented as of this encounter
--- OUTSIDE RECORDS SUMMARY | 2025-05-04 14:25 | XMS_ITS | Encounter Summary ---
Author Organization [facility] Address [address] [place] [address] Phone Care Team Providers Care Lumber Driver Name Role Phone Juan Pablo Patino MD Primary Care Provider [phone] Encounter Details Date Type Department Care Team (Late st Contact Info) Description 04/05/2013 Documentation [facility] [place] [address] [place] [address] Family Medicine, Physician [address] [place], [place] [phone] Social History Tobacco Use Types Packs/Day Years [...] on filedocumented in this encounter Care Teams Lumber Driver Relationship Specialty Start Date End Date Juan Pablo Patino MD [address] [place] [address] PCP - General 03/19/17 09/04/19 documented as of this encounter
--- OUTSIDE RECORDS SUMMARY | 2025-05-04 14:25 | XMS_ITS | Encounter Summary ---
Author Organization [facility] Address [address] [place] [address] Phone Care Team Providers Care Supervisor Fryer Farm Name Role Phone Juan Pablo Patino MD Primary Care Provider [phone] Encounter Details Date Type Department Care Team (Late st Contact Info) Description 03/25/2017 Conversion Encounter [facility] [place] [address] [place] [address] Social History Tobacco Use Types Packs/Day Years [...] on filedocumented in this encounter Care Teams Supervisor Fryer Farm Relationship Specialty Start Date End Date Juan Pablo Patino MD [address] [place] [address] PCP - General 03/19/17 09/04/19 documented as of this encounter
== END 2025-05-04 13:42 | disposition home or self-care (01) ==
LOC: HO.HMCHD 13:05
PROVIDERS: PCP Physician Assistant; Visit Provider Physician Assistant
DX: Z00.00 Encounter for general adult medical examination without abnormal findings (principal)

== ENCOUNTER 2025-05-04 13:04 | Outpatient (REF) | payer BC, SELFPAY ==
[2025-05-04 14:06] LABS: MANUAL DIFF FLAG NO
[2025-05-04 15:09] LABS: Hematocrit 44.6 % (42.0-52.0); Hemoglobin 15.5 g/dl (14.0-18.0); Imm Gran Abs Auto 0.01 X10*3/uL (0.00-0.03); Imm Gran Pct Auto 0.2 % (0.0-0.4); Lymphocytes Absolute Auto 1.8 X10*3/uL (1.2-4.9); Mean Corpuscular HGB Conc 34.8 g/dl (31.0-36.0); Mean Corpuscular Hemoglobin 30.4 pg (27.0-33.0); Mean Corpuscular Volume 87.5 fL (80.0-98.0); NRBC Abs Auto 0.000 X10*3/uL (0.0-0.012); NRBC Pct Auto 0.0 /100WBC (0.0-0.2); Platelet Count 262 X10*3/uL (160-400); Red Blood Count 5.10 X10*6/uL (4.60-5.80); White Blood Count 6.2 X10*3/uL (4.8-10.8)
[2025-05-04 15:36] LABS: Alanine Aminotransferase 65 U/L (0-40); Albumin Level 4.8 g/dL (3.5-5.0); Alkaline Phosphatase 69 U/L (39-117); Anion Gap 12 (12-20); Aspartate Amino Transferase 42 U/L (5-37); Blood Urea Nitrogen 11 mg/dL (9-16); Calcium 9.6 mg/dL (8.4-10.2); Carbon Dioxide 25 mmol/L (22-29); Chloride 111 mmol/L (96-108); Cholesterol 95 mg/dL (<200); Estimated Glomerular Filt Rate > 60; HDL Cholesterol 37 mg/dL (>40); Potassium 4.7 mmol/L (3.3-5.1); Sodium 143 mmol/L (135-145); Total Protein 7.1 g/dL (6.5-8.0); Triglycerides 59 mg/dL (<150)
== END 2025-05-04 13:05 | disposition home or self-care (01) ==
LOC: HO.LAB 13:04
PROVIDERS: PCP Physician Assistant; Visit Provider Physician Assistant
DX: Z00.00 Encounter for general adult medical examination without abnormal findings (principal)
CPT/HCPCS: 36415; 80048; 80061; 80076; 85025; 96127